=== PATIENT | female | born 1975 | race American Indian/Alaskan Native ===

== ENCOUNTER 2018-05-15 13:29 | Emergency (ER) | payer SELFPAY ==
--- NOTE | 2018-05-15 14:02 | Emergency Department Report ---
ED Neuro Deficit HPI - General Chief Complaint: Chest Pain Stated Complaint: HEADACHE/CHEST PAIN/CLOUDY VISION Time Seen by Provider: 05/15/18 13:49 Source: patient Mode of arrival: Ambulatory Limitations: Other - History of Present Illness Initial Comments: 42-year-old female presents to ED with complaint of headache and visual loss. The patient says she was last normal at 2 AM, woke up approximately 12 noon with a severe posterior headache and blurred vision, denies neck pain. Patient states blurred vision progressed to no vision at all. Patient says she only sees a "black cloud" with some light passing through. States she is unable to see images or colors. 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 Patient reports tobacco and ethanol use, denies drug use. -: hour(s) (2) Last Observed Normal: 02:00 Location: other (vision) Presenting Symptoms: Present: Sudden, Severe Headache, Blurred/Loss of Vision History of same: No Place: home Severity: severe Improves With: none Worsens With: none On Anticoagulants: Yes (eliquis) Context: sudden onset Associated Symptoms: chest pain Treatments Prior to Arrival: none - Related Data Allergies/Adverse Reactions: Allergies Allergy/AdvReac Type Severity Reaction Status Date / Time lisinopril Allergy Unknown Verified 05/15/18 13:51 Penicillins Allergy Unknown Verified 05/15/18 13:51 Sulfa (Sulfonamide Allergy Unknown Verified 05/15/18 13:51 Antibiotics) ED Review of Systems ROS: Stated complaint: HEADACHE/CHEST PAIN/CLOUDY VISION Other details as noted in HPI Comment: All other systems reviewed and negative Eyes: other (reports vision loss bilateral eyes) Respiratory: cough Cardiovascular: chest pain Musculoskeletal: other (denies neck pain) Neurological: headache. denies: weakness, numbness, paresthesias ED Past Medical Hx - Past Medical History Previous Medical History?: Yes Hx Hypertension: Yes Hx Pulmonary Embolism: Yes Hx Asthma: Yes Additional medical history: nodules on lungs - Social History Smoking Status: Current Every Day Smoker Substance Use Type: Alcohol, Marijuana ED Neuro Physical Exam - General Limitations: Other General appearance: alert, in no apparent distress, other (smells of ETOH) Suspected Stroke: Yes - Head Head exam: Present: atraumatic, normocephalic - Eye Eye exam: Present: normal appearance, PERRL, EOMI (unable to follow my finger, however, able to move eyes in the direction that I ask). Absent: conjunctival injection - ENT ENT exam: Present: mucous membranes moist - Neck Neck exam: Present: normal inspection - Respiratory Respiratory exam: Present: normal lung sounds bilaterally. Absent: respiratory distress - Cardiovascular Cardiovascular Exam: Present: regular rate, normal rhythm - GI/Abdominal GI/Abdominal exam: Present: soft. Absent: distended, tenderness - Extremities Exam Extremities exam: Present: normal inspection - Neurological Exam Neurological exam: Present: alert, oriented X3 - NIHSS Assessment Interval: Baseline 1a. Level of Consciousness: alert/keenly responsive 1b. LOC Questions: answers both correctly 1c. LOC Commands: performs tasks correctly 2. Best Gaze: normal 3. Visual: bilateral hemianopia 4. Facial Palsy: normal symmetrical movement 5b. Motor Arm Right: no drift 5a. Motor Arm Left: no drift 6a. Motor Leg Left: no drift 6b. Motor Leg Right: no drift 7. Limb Ataxia: absent 8. Sensory: normal 9. Best Language: no aphasia 10. Dysarthria: normal 11. Extinction/Inattention: no abnormality Total Score: 3 Stroke Severity: Minor Stroke - Skin Skin exam: Present: warm, dry, intact, normal color ED Course Vital Signs 05/15/18 05/15/18 05/15/18 13:48 14:11 14:15 Temperature 98.9 F Pulse Rate 94 H 85 109 H Respiratory 20 26 H 25 H Rate Blood Pressure 152/105 165/118 O2 Sat by Pulse 98 98 Oximetry 05/15/18 05/15/18 05/15/18 14:31 15:02 15:15 Temperature Pulse Rate 80 70 Respiratory 15 17 Rate Blood Pressure 165/118 165/118 163/106 O2 Sat by Pulse 98 100 98 Oximetry 05/15/18 05/15/18 05/15/18 15:30 15:45 16:00 Temperature Pulse Rate 101 H 72 78 Respiratory 21 13 13 Rate Blood Pressure 169/115 170/107 154/107 O2 Sat by Pulse 88 98 100 Oximetry 05/15/18 05/15/18 05/15/18 16:15 16:30 16:35 Temperature Pulse Rate 79 86 Respiratory 18 17 18 Rate Blood Pressure 154/90 155/97 O2 Sat by Pulse 97 94 98 Oximetry - Reevaluation(s) Reevaluation #1: 05/15/18 15:16 Passed by pt's room and she is laying on her side in position looking at her phone and talking to someone. I entered the room and saw that pt is Facetiming with her mother. I asked pt why she was on Face Time if she could not see anything. Pt states she still cannot see, but was able to see her mother's name which is red in color on her phone. Pt initially stated that she could not see colors or images. Awaiting CTA w/ venogram. Reevaluation #2: 05/15/18 15:42 Passed by pt's room and noticed pt signing paperwork for registration. I asked to see paperwork and pt did sign her name on the line. CTA and venogram normal. Neurologist recommends admit for MRI, no thrombolytics or heparin at this time. - Consultations Consultation #1: 05/15/18 14:19 Dr Smith, neurologist at bedside via robot. Will place order for CTA and venogram - Lab Data Result diagrams: 05/15/18 14:04 05/15/18 14:04 Lab Results 05/15/18 05/15/18 05/15/18 Range/Units 14:04 14:04 14:04 WBC 6.7 (4.5-11.0) K/mm3 RBC 4.97 (3.65-5.03) M/mm3 Hgb 13.1 (10.1-14.3) gm/dl Hct 40.4 (30.3-42.9) % MCV 81 (79-97) fl MCH 26 L (28-32) pg MCHC 33 (30-34) % RDW 16.5 H (13.2-15.2) % Plt Count 334 (140-440) K/mm3 Lymph % (Auto) 38.5 H (13.4-35.0) % [place] % (Auto) 11.4 H (0.0-7.3) % Eos % (Auto) 2.4 (0.0-4.3) % Baso % (Auto) 0.9 (0.0-1.8) % Lymph # 2.6 (1.2-5.4) K/mm3 [place] # 0.8 (0.0-0.8) K/mm3 Eos # 0.2 (0.0-0.4) K/mm3 Baso # 0.1 (0.0-0.1) K/mm3 Seg Neutrophils % 46.8 (40.0-70.0) % Seg Neutrophils # 3.1 (1.8-7.7) K/mm3 Sodium 144 (137-145) mmol/L Potassium 4.2 (3.6-5.0) mmol/L Chloride 108.5 H (98-107) mmol/L Carbon Dioxide 19 L (22-30) mmol/L Anion Gap 21 mmol/L BUN 7 (7-17) mg/dL Creatinine 0.7 (0.7-1.2) mg/dL Estimated GFR > 60 ml/min BUN/Creatinine Ratio 10 % Glucose 92 (65-100) mg/dL Calcium 8.0 L (8.4-10.2) mg/dL Total Creatine Kinase 119 (30-135) units/L CK-MB (CK-2) 1.4 (0.0-4.0) ng/mL CK-MB (CK-2) Rel Index 1.1 (0-4) Troponin T < 0.010 (0.00-0.029) ng/mL HCG, Quant (0-4) mIU/mL Plasma/Serum Alcohol (0-0.07) % 05/15/18 05/15/18 Range/Units 14:04 14:04 WBC (4.5-11.0) K/mm3 RBC (3.65-5.03) M/mm3 Hgb (10.1-14.3) gm/dl Hct (30.3-42.9) % MCV (79-97) fl MCH (28-32) pg MCHC (30-34) % RDW (13.2-15.2) % Plt Count (140-440) K/mm3 Lymph % (Auto) (13.4-35.0) % [place] % (Auto) (0.0-7.3) % Eos % (Auto) (0.0-4.3) % Baso % (Auto) (0.0-1.8) % Lymph # (1.2-5.4) K/mm3 [place] # (0.0-0.8) K/mm3 Eos # (0.0-0.4) K/mm3 Baso # (0.0-0.1) K/mm3 Seg Neutrophils % (40.0-70.0) % Seg Neutrophils # (1.8-7.7) K/mm3 Sodium (137-145) mmol/L Potassium (3.6-5.0) mmol/L Chloride (98-107) mmol/L Carbon Dioxide (22-30) mmol/L Anion Gap mmol/L BUN (7-17) mg/dL Creatinine (0.7-1.2) mg/dL Estimated GFR ml/min BUN/Creatinine Ratio % Glucose (65-100) mg/dL Calcium (8.4-10.2) mg/dL Total Creatine Kinase (30-135) units/L CK-MB (CK-2) (0.0-4.0) ng/mL CK-MB (CK-2) Rel Index (0-4) Troponin T (0.00-0.029) ng/mL HCG, Quant < 2 (0-4) mIU/mL Plasma/Serum Alcohol 0.08 H (0-0.07) % - EKG Data -: EKG Interpreted by Me EKG shows normal: sinus rhythm, axis, intervals, QRS complexes, ST-T waves Rate: tachycardia Interpretation: no acute changes - Radiology Data Radiology results: report reviewed, image reviewed - Medical Decision Making 42-year-old female reports vision loss earlier today. However, patient has been observed face timing and also signing paperwork, even though she says she is still unable to see. Imaging has been negative, including head CT, CTA head and neck, CT venogram of brain. Alcohol level is slightly elevated 0.08. 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 Spoke with hospitalist, Dr. Rogers, regarding admission. - Differential Diagnosis CVA, conversion disorder, ETOH intoxication Critical Care Time: Yes Critical care time in (mins) excluding proc time.: 30 Critical care attestation.: If time is entered above; I have spent that time in minutes in the direct care of this critically ill patient, excluding procedure time. Critical Care Time: 30 minutes ED Disposition Clinical Impression: Vision disturbance, Alcohol intoxication Disposition: 09 OP ADMIT IP TO THIS HOSP Is pt being admited?: Yes Condition: Stable Referrals: NEDA ARRIOLA MD [Staff Physician] - 3-5 Days Time of Disposition: 16:31
[2018-05-15 14:08] LABS: Basophils # (Auto) 0.1 K/mm3 (0.0-0.1); Basophils % (Auto) 0.9 % (0.0-1.8); Eosinophils # (Auto) 0.2 K/mm3 (0.0-0.4); Eosinophils % (Auto) 2.4 % (0.0-4.3); Hematocrit 40.4 % (30.3-42.9); Hemoglobin 13.1 gm/dl (10.1-14.3); Lymphocytes # (Auto) 2.6 K/mm3 (1.2-5.4); Lymphocytes % (Auto) 38.5 % (13.4-35.0); Mean Corpuscular HGB Conc 33 % (30-34); Mean Corpuscular Volume 81 fl (79-97); Monocytes # (Auto) 0.8 K/mm3 (0.0-0.8); Monocytes % (Auto) 11.4 % (0.0-7.3); Platelet Count 334 K/mm3 (140-440); Red Blood Count 4.97 M/mm3 (3.65-5.03); Red Cell Distribution Width 16.5 % (13.2-15.2)
[2018-05-15 14:19] LABS: BUN/Creatinine Ratio 10; Blood Urea Nitrogen 7 mg/dL (7-17); Hemolysis Index 5
--- NOTE | 2018-05-15 14:23 | Cat Scan Report ---
CT HEAD WITHOUT CONTRAST: HISTORY: Headache, vision loss, stroke. TECHNIQUE: Sequential 2.5mm CT images. COMPARISON: none. FINDINGS: Cerebral Parenchyma: Within normal limits. Cerebellum: Within normal limits. Brainstem: Within normal limits. Ventricles: Normal. Sella: Normal. Extra-axial spaces: Normal. Basal Cisterns: Normal. Intracranial Hemorrhage: None. Midline Shift: None. Calvarium: Normal. Sinuses: Normal. Mastoid Air Cells: Normal. Visualized Orbits: Normal. IMPRESSION: Cranial CT scan within normal limits. These findings were discussed with Dr. Rogel in the emergency department at 1418 hrs.
[2018-05-15 14:26] LABS: Creatine Kinase MB 1.4 ng/mL (0.0-4.0)
[2018-05-15] MEDS ORDERED: ZOFRAN IV ONE (15:00)
--- NOTE | 2018-05-15 15:27 | Cat Scan Report ---
CTA NECK: HISTORY: Headache, vision loss, stroke. TECHNIQUE: Helical CT following IV contrast. Sagittal and coronal reformatted images. 3D volume rendering technique. Stenosis was calculated using NASCET criteria. FINDINGS: The visualized aortic arch, innominate artery and proximal bilateral subclavian arteries are widely patent with less than 20% stenosis. Within the right carotid system: Less than 20% stenosis. Within the left carotid system: Less than 20% stenosis. The cervical vertebral arteries are patent with less than 20% stenosis. IMPRESSION: Unremarkable CTA of the neck.
--- NOTE | 2018-05-15 15:31 | Cat Scan Report ---
CTA HEAD: HISTORY: Headache, vision loss, stroke. TECHNIQUE: Helical CT images after IV contrast with 0.625mm reformations. Sagittal and coronal reformats. Rotational MIP images. 3D volume rendering technique. FINDINGS: The arterial structures of the anterior and posterior circulations are patent throughout. No evidence for stenosis, occlusion or aneurysm. CTV images were also obtained. The dural venous sinuses and deep internal cerebral veins are patent. No venous thrombosis is detected. IMPRESSION: Unremarkable CTA head. Unremarkable CTV head.
--- NOTE | 2018-05-15 16:49 | Event Note ---
Date: 05/15/18 C/o Blindness Patient facetiming when i eneterd the room Power 5/5 all 4 extemities Normal Neuro exam Etoh .08 Dx Etoh intoxication No TIA No CVA Discharge home )
--- NOTE | 2018-05-15 16:53 | Emergency Department Report ---
ED Neuro Deficit HPI - General Chief Complaint: Chest Pain Stated Complaint: HEADACHE/CHEST PAIN/CLOUDY VISION Time Seen by Provider: 05/15/18 13:49 Source: patient Mode of arrival: Ambulatory Limitations: No Limitations, Other - History of Present Illness Initial Comments: 42 yo female with history of prior DVT, PE supposed to be taking eliquis but reports has not been taking it for a few weeks due to it giving her heavy menstrual periods reports she went to bed at 0200 hrs and woke up around 1230 and she couldnt see- she is describing a fog across her vision in both eyes and cannot count fingers or see faces. -: During the night Time: 14:11 Last Observed Normal: 02:00 Location: other (vision blaterally, sensory on right side noted during exam, severe headache) Presenting Symptoms: Present: Sudden, Severe Headache History of same: No Place: home Severity: severe Improves With: none Worsens With: none On Anticoagulants: No (eliquis is prescribed but not taking it at home) Context: other (unknown, sleeping) Treatments Prior to Arrival: none - Related Data Home Medications: Previous Rx's Medication Instructions Recorded Last Taken Type Aspirin EC [Aspirin Enteric Coated 81 mg PO QDAY #100 tablet. 05/15/18 Unknown Rx TAB] Allergies/Adverse Reactions: Allergies Allergy/AdvReac Type Severity Reaction Status Date / Time lisinopril Allergy Unknown Verified 05/15/18 13:51 Penicillins Allergy Unknown Verified 05/15/18 13:51 Sulfa (Sulfonamide Allergy Unknown Verified 05/15/18 13:51 Antibiotics) ED Review of Systems ROS: Stated complaint: HEADACHE/CHEST PAIN/CLOUDY VISION Other details as noted in HPI Eyes: other (reports vision loss bilateral eyes) Respiratory: cough Cardiovascular: chest pain Musculoskeletal: other (denies neck pain) Neurological: headache. denies: weakness, numbness, paresthesias ED Past Medical Hx - Past Medical History Previous Medical History?: Yes Hx Hypertension: Yes Hx Pulmonary Embolism: Yes Hx Asthma: Yes Additional medical history: nodules on lungs - Social History Smoking Status: Current Every Day Smoker Substance Use Type: Alcohol, Marijuana - Medications Home Medications: Home Medications Medication Instructions Recorded Confirmed Last Taken Type Aspirin EC [Aspirin Enteric Coated 81 mg PO QDAY #100 tablet. 05/15/18 Unknown Rx TAB] ED Neuro Physical Exam - General Limitations: Other General appearance: alert, in no apparent distress, other (smells of ETOH per ED doctor; screaming and grabbing head, turning from left to right w/o any weakness noted, curls up in position) Suspected Stroke: Yes (posterior) - NIHSS Assessment Interval: Baseline 1a. Level of Consciousness: alert/keenly responsive 1b. LOC Questions: answers both correctly 1c. LOC Commands: performs tasks correctly 2. Best Gaze: normal 3. Visual: bilateral hemianopia (cannot finger count but can see motion) 4. Facial Palsy: normal symmetrical movement 5b. Motor Arm Right: no drift 5a. Motor Arm Left: no drift 6a. Motor Leg Left: no drift 6b. Motor Leg Right: no drift 7. Limb Ataxia: absent 8. Sensory: mild/moderate sensory loss (Right face/arm/leg) 9. Best Language: no aphasia 10. Dysarthria: normal 11. Extinction/Inattention: no abnormality Total Score: 4 Stroke Severity: Minor Stroke - Psychiatric Psychiatric exam: Present: anxious, manic (near manic, screaming at times) ED Course Vital Signs 05/15/18 05/15/18 05/15/18 13:48 14:11 14:15 Temperature 98.9 F Pulse Rate 94 H 85 109 H Respiratory 20 26 H 25 H Rate Blood Pressure 152/105 165/118 O2 Sat by Pulse 98 98 Oximetry 05/15/18 05/15/18 05/15/18 14:31 15:02 15:15 Temperature Pulse Rate 80 70 Respiratory 15 17 Rate Blood Pressure 165/118 165/118 163/106 O2 Sat by Pulse 98 100 98 Oximetry 05/15/18 05/15/18 05/15/18 15:30 15:45 16:00 Temperature Pulse Rate 101 H 72 78 Respiratory 21 13 13 Rate Blood Pressure 169/115 170/107 154/107 O2 Sat by Pulse 88 98 100 Oximetry 05/15/18 05/15/18 05/15/18 16:15 16:30 16:35 Temperature Pulse Rate 79 86 Respiratory 18 17 18 Rate Blood Pressure 154/90 155/97 O2 Sat by Pulse 97 94 98 Oximetry 05/15/18 05/15/18 05/15/18 16:45 17:00 17:15 Temperature Pulse Rate 77 87 71 Respiratory 15 22 22 Rate Blood Pressure 159/100 159/109 167/109 O2 Sat by Pulse 96 96 86 Oximetry - Lab Data Result diagrams: 05/15/18 14:04 05/15/18 14:04 Lab Results 05/15/18 05/15/18 05/15/18 Range/Units 14:04 14:04 14:04 WBC 6.7 (4.5-11.0) K/mm3 RBC 4.97 (3.65-5.03) M/mm3 Hgb 13.1 (10.1-14.3) gm/dl Hct 40.4 (30.3-42.9) % MCV 81 (79-97) fl MCH 26 L (28-32) pg MCHC 33 (30-34) % RDW 16.5 H (13.2-15.2) % Plt Count 334 (140-440) K/mm3 Lymph % (Auto) 38.5 H (13.4-35.0) % [place] % (Auto) 11.4 H (0.0-7.3) % Eos % (Auto) 2.4 (0.0-4.3) % Baso % (Auto) 0.9 (0.0-1.8) % Lymph # 2.6 (1.2-5.4) K/mm3 [place] # 0.8 (0.0-0.8) K/mm3 Eos # 0.2 (0.0-0.4) K/mm3 Baso # 0.1 (0.0-0.1) K/mm3 Seg Neutrophils % 46.8 (40.0-70.0) % Seg Neutrophils # 3.1 (1.8-7.7) K/mm3 PT (12.2-14.9) Sec. INR (0.87-1.13) APTT (24.2-36.6) Sec. Thrombin Time (15.1-19.6) Sec. Sodium 144 (137-145) mmol/L Potassium 4.2 (3.6-5.0) mmol/L Chloride 108.5 H (98-107) mmol/L Carbon Dioxide 19 L (22-30) mmol/L Anion Gap 21 mmol/L BUN 7 (7-17) mg/dL Creatinine 0.7 (0.7-1.2) mg/dL Estimated GFR > 60 ml/min BUN/Creatinine Ratio 10 % Glucose 92 (65-100) mg/dL Calcium 8.0 L (8.4-10.2) mg/dL Total Creatine Kinase 119 (30-135) units/L CK-MB (CK-2) 1.4 (0.0-4.0) ng/mL CK-MB (CK-2) Rel Index 1.1 (0-4) Troponin T < 0.010 (0.00-0.029) ng/mL HCG, Quant (0-4) mIU/mL Plasma/Serum Alcohol (0-0.07) % 05/15/18 05/15/18 05/15/18 Range/Units 14:04 14:04 15:53 WBC (4.5-11.0) K/mm3 RBC (3.65-5.03) M/mm3 Hgb (10.1-14.3) gm/dl Hct (30.3-42.9) % MCV (79-97) fl MCH (28-32) pg MCHC (30-34) % RDW (13.2-15.2) % Plt Count (140-440) K/mm3 Lymph % (Auto) (13.4-35.0) % [place] % (Auto) (0.0-7.3) % Eos % (Auto) (0.0-4.3) % Baso % (Auto) (0.0-1.8) % Lymph # (1.2-5.4) K/mm3 [place] # (0.0-0.8) K/mm3 Eos # (0.0-0.4) K/mm3 Baso # (0.0-0.1) K/mm3 Seg Neutrophils % (40.0-70.0) % Seg Neutrophils # (1.8-7.7) K/mm3 PT 13.0 (12.2-14.9) Sec. INR 0.93 (0.87-1.13) APTT 26.6 (24.2-36.6) Sec. Thrombin Time 16.7 (15.1-19.6) Sec. Sodium (137-145) mmol/L Potassium (3.6-5.0) mmol/L Chloride (98-107) mmol/L Carbon Dioxide (22-30) mmol/L Anion Gap mmol/L BUN (7-17) mg/dL Creatinine (0.7-1.2) mg/dL Estimated GFR ml/min BUN/Creatinine Ratio % Glucose (65-100) mg/dL Calcium (8.4-10.2) mg/dL Total Creatine Kinase (30-135) units/L CK-MB (CK-2) (0.0-4.0) ng/mL CK-MB (CK-2) Rel Index (0-4) Troponin T (0.00-0.029) ng/mL HCG, Quant < 2 (0-4) mIU/mL Plasma/Serum Alcohol 0.08 H (0-0.07) % - Medical Decision Making IMPRESSION: 1. R/O CSVT giiven h/o headache and PE/DVT noncompliant on AC 2. R/O stroke- vs PRES syndrome- would be localized to bilateral occipital regions and left parietal region, could be induced by drug use vs HTN 3. alcohol intoxication- patient's BAL came back elevated Recs: 1. CTA/V H/N- this was completed and negative for CSVT 2. recommend MRI brain to r/o stroke, neurology inpatient consult Laila Smith MD d/w ED doc Medical Decision Making: - Extensive number of diagnosis or management options are considered above. - Extensive amount of complex data reviewed. - High risk of complication and/or morbidity or mortality are associated with differential diagnostic considerations above. - There may be uncertain outcome and increased probability of prolonged functional impairment or high probability of severe prolonged functional impairment associated with some of these differential diagnosis. Medical Data Reviewed: 1.Data reviewed include clinical labs, radiology, Medical Tests; 2.Tests results discussed w/performing or interpreting physician; 3.Obtaining/reviewing old medical records; 4.Obtaining case history from another source; 5.Independent review of image, tracing or specimen. Patient was informed the Neurology Consult would happen via telehealth (remote video) and consented to receiving care in this manner. Critical care attestation.: If time is entered above; I have spent that time in minutes in the direct care of this critically ill patient, excluding procedure time. ED Disposition Clinical Impression: Vision disturbance, Alcohol intoxication Disposition: DC-01 TO HOME OR SELFCARE Is pt being admited?: Yes Condition: Stable Instructions: Alcohol Intoxication (ED), Abuse of Alcohol (ED) Prescriptions: Aspirin EC [Aspirin Enteric Coated TAB] 81 mg PO QDAY #100 tablet. Referrals: NEDA ARRIOLA MD [Staff Physician] - 3-5 Days
[2018-05-15 16:58] LABS: INR 0.93 (0.87-1.13)
[2018-05-15 16:59] LABS: Partial Thromboplastin Time 26.6 Sec. (24.2-36.6); Thrombin Time 16.7 Sec. (15.1-19.6)
[2018-05-15 17:18] VITALS: BP 167/109
[2018-05-15] MEDS ORDERED: ZOFRAN ONE (18:45)
== END 2018-05-15 17:39 | disposition home or self-care (01) ==
LOC: ED 13:29
DX: H53.9 Unspecified visual disturbance (principal); F10.120 Alcohol abuse with intoxication, uncomplicated; I10 Essential (primary) hypertension; J45.909 Unspecified asthma, uncomplicated; F17.200 Nicotine dependence, unspecified, uncomplicated; Z86.718 Personal history of other venous thrombosis and embolism; Z86.711 Personal history of pulmonary embolism; Z88.0 Allergy status to penicillin; Z88.2 Allergy status to sulfonamides
CPT/HCPCS: 36415; 70450; 70496; 70498; 80048; 82550; 82553; 82962; 84484; 84702; 85025; 85610; 85670; 85730; 93005; 93010; 96374; 99285; G0480; J2405; Q9967; 80320

== ENCOUNTER 2018-10-31 11:40 | Emergency (ER) | payer OTHER ==
--- NOTE | 2018-10-31 13:02 | Emergency Department Report ---
HPI - General Chief Complaint: Extremity Problem,Nontraumatic Time Seen by Provider: 10/31/18 12:15 - HPI HPI: 43-year-old female presents to the emergency department with complaint of some right hand pain, mostly around the thumb and thenar eminence, that radiates around towards the forearm. This is been going on for the past week. However this morning the patient noticed some swelling to the hand. Patient says that she is concerned that she could have formed a blood clot as she has a history of both DVT and PE and says that "this pain feels similar." The patient admits to noncompliance with her Eliquis for the past 2 months secondary to insurance and financial issues. She has not taken anything for her symptoms prior to presentation. She is right-hand dominant. Her primary care physician is a Dr. Terrance Mariee. ED Past Medical Hx - Past Medical History Hx Hypertension: Yes Hx Pulmonary Embolism: Yes Hx Asthma: Yes Additional medical history: nodules on lungs - Surgical History Past Surgical History?: No - Social History Smoking Status: Current Every Day Smoker Substance Use Type: Alcohol, Marijuana - Medications Home Medications: Home Medications Medication Instructions Recorded Confirmed Last Taken Type Aspirin EC [Halfprin EC] 81 mg PO QDAY #100 tablet. 05/15/18 Unknown Rx Ibuprofen [Motrin 600 MG tab] 600 mg PO Q8H PRN #20 tablet 10/31/18 Unknown Rx amLODIPine [Norvasc] 5 mg PO DAILY #30 tab 10/31/18 Unknown Rx ED Review of Systems ROS: Stated complaint: RT HAND PAIN Other details as noted in HPI Comment: All other systems reviewed and negative Constitutional: denies: chills, fever Respiratory: denies: cough, shortness of breath Cardiovascular: denies: chest pain, palpitations Musculoskeletal: joint swelling, arthralgia, myalgia Skin: denies: rash, lesions Neurological: denies: numbness, paresthesias Physical Exam - Physical Exam Vital Signs: Vital Signs 10/31/18 11:44 Temperature 98.1 F Pulse Rate 82 Respiratory 20 Rate Blood Pressure 185/118 O2 Sat by Pulse 97 Oximetry Physical Exam: GENERAL: The patient is well-developed well-nourished. HENT: Normocephalic. Atraumatic. Patient has moist mucous membranes. EYES: Extraocular motions are intact. NECK: Supple. Trachea is midline. CHEST/LUNGS: Clear to auscultation. There is no respiratory distress noted. HEART/CARDIOVASCULAR: Regular. There is no tachycardia. There is no murmur. ABDOMEN: Abdomen is soft, nontender. Patient has normal bowel sounds. There is no abdominal distention. SKIN: Mild swelling around the right thumb and thenar eminence. No skin color change, erythema, rash or lesions. NEURO: The patient is awake, alert, and oriented. The patient is cooperative. The patient has no focal neurologic deficits. Normal speech. MUSCULOSKELETAL: There is some tenderness to palpation around the base of the right thumb. Capillary refill less than 2 seconds and radial pulse +2 over 4 defected right thumb and wrist. There is no limitation range of motion. ED Course Vital Signs 10/31/18 11:44 Temperature 98.1 F Pulse Rate 82 Respiratory 20 Rate Blood Pressure 185/118 O2 Sat by Pulse 97 Oximetry ED Medical Decision Making - Lab Data Result diagrams: 10/31/18 13:03 10/31/18 13:03 - Radiology Data Radiology results: report reviewed Right upper extremity venous Doppler ultrasound was negative for DVT. - Medical Decision Making Patient presents with a few days of pain and swelling around the right thumb with some radiation down towards her forearm. It seems like a low suspicion for right upper extremity DVT but she does have a history of DVT, PE and medication noncompliance with her anticoagulation. For this recent right upper Jevity ve nous Doppler ultrasound was completed that it was in fact negative for a DVT. Labs were unremarkable including no leukocytosis, normal uric acid level. Her vital signs are stable throughout her ED course. She did present with some hypertension but came down without any antihypertensive medications given. We discussed dietary and/or lifestyle changes to make including decreased sodium and caffeine intake. She'll be started on amlodipine. She was given referrals for primary care and orthopedics. She will return to the ER with any worsening of her symptoms or any acute distress. - Differential Diagnosis osteoarthritis, DVT, gout, cellulitis Critical Care Time: No Critical care attestation.: If time is entered above; I have spent that time in minutes in the direct care of this critically ill patient, excluding procedure time. ED Disposition Clinical Impression: Pain of right thumb, Right hand pain, Noncompliance with medication regimen Hypertension Qualifiers: Hypertension type: essential hypertension Qualified Code(s): I10 - Essential (primary) hypertension Disposition: DC-01 TO HOME OR SELFCARE Is pt being admited?: No Condition: Stable Instructions: Hypertension (ED), Arthralgia (ED) Additional Instructions: Please follow-up with your primary care physician in the next few days. Return to the emergency Department with any worsening of your symptoms or any acute distress. I am getting a referral for a local orthopedist, Dr. Medina, to follow-up regarding your right thumb, hand and wrist pain. I'm starting youon a blood pressure medication called Norvasc/amlodipine. This medication is taken once per day, usually in the morning. Try and stay away from foods that are high in salt and caffeinated products. Keep a blood pressure log. Prescriptions: Ibuprofen [Motrin 600 MG tab] 600 mg PO Q8H PRN #20 tablet PRN Reason: Pain amLODIPine [Norvasc] 5 mg PO DAILY #30 tab Referrals: STEPHAN MEDINA MD [Staff Physician] - 2-3 Days [facility] [Outside] - 2-3 Days Time of Disposition: 14:50
[2018-10-31 13:27] LABS: Basophils % (Auto) 0.7 % (0.0-1.8); Eosinophils # (Auto) 0.1 K/mm3 (0.0-0.4); Eosinophils % (Auto) 1.1 % (0.0-4.3); Hemoglobin 11.6 gm/dl (10.1-14.3); Mean Corpuscular HGB Conc 33 % (30-34); Mean Corpuscular Volume 78 fl (79-97); Monocytes # (Auto) 0.5 K/mm3 (0.0-0.8); Monocytes % (Auto) 7.2 % (0.0-7.3); Platelet Count 334 K/mm3 (140-440); Red Blood Count 4.48 M/mm3 (3.65-5.03); Red Cell Distribution Width 16.4 % (13.2-15.2)
[2018-10-31 13:51] LABS: BUN/Creatinine Ratio 11; Blood Urea Nitrogen 8 mg/dL (7-17); Calcium 8.3 mg/dL (8.4-10.2); Hemolysis Index 3; Uric Acid 3.7 mg/dL (3.5-7.6)
--- NOTE | 2018-10-31 13:58 | Vascular Lab Report ---
RIGHT UPPER EXTREMITY VENOUS DOPPLER ULTRASOUND HISTORY: Right arm pain and swelling for one week COMPARISON: None. TECHNIQUE: Grayscale, color and spectral Doppler imaging of the venous system of the right upper extr emity was performed. FINDINGS: Internal Jugular Vein: Normal grayscale appearance and flow. Subclavian Vein: Normal grayscale appearance and flow. Axillary Vein: Normal venous flow, compressibility and augmentation. Brachial vein: Normal venous flow, compressibility and augmentation. Basilic vein: Normal venous flow, compressibility and augmentation. Cephalic vein: Normal venous flow, compressibility and augmentation. Radial vein: Normal venous flow, compressibility and augmentation. Ulnar vein: Normal venous flow, compressibility and augmentation. Additional Findings: None. IMPRESSION: 1. No sonographic evidence of deep venous thrombosis in the right upper extremity. Signer Name: Jhony Morfin Jr, MD Signed: 10/31/2018 1:54 PM Workstation Name: [id number]
[2018-10-31 15:49] VITALS: BP 154/110
== END 2018-10-31 15:07 | disposition home or self-care (01) ==
LOC: ED 11:40
DX: M79.641 Pain in right hand (principal); M79.644 Pain in right finger(s); I10 Essential (primary) hypertension; J45.909 Unspecified asthma, uncomplicated; F17.200 Nicotine dependence, unspecified, uncomplicated; F12.10 Cannabis abuse, uncomplicated; Z91.14 Patient's other noncompliance with medication regimen; Z88.8 Allergy status to other drugs, medicaments and biological substances; Z88.0 Allergy status to penicillin; Z88.2 Allergy status to sulfonamides
CPT/HCPCS: 36415; 80048; 84550; 85025

== ENCOUNTER 2020-02-23 07:22 | Emergency (ER) | payer MEDICAID ==
[2020-02-23] MEDS ORDERED: oxyCODONE /ACETAMINOPHEN 5-325MG TAB PO ONE (13:41)
--- NOTE | 2020-02-23 13:47 | Emergency Department Report ---
ED General Adult HPI - General Chief complaint: Neck Pain/Injury Stated complaint: LT ARM TINGLING Time Seen by Provider: 02/23/20 13:39 Source: patient Mode of arrival: Wheelchair Limitations: No Limitations - History of Present Illness Initial comments: 44-year-old female presents to the emergency room complaining of left shoulder pain off and on x1 month her left shoulder pain worsens with movement. she denies any known injuries or falls. she states this morning when she woke up the pain was worse pain is now a 9/10 . denies chest pain she denies denies shortness of breath she denies cough fever chills no URI symptoms. Patient has a past medical history of DVT currently on Eliquis history of high blood pressure and eosinophilia. -: month(s) (1) Location: upper extremity (Left shoulder) Radiation: other (Left clavicle to left shoulder) Severity scale (0 -10): 9 Quality: aching, sharp Consistency: constant Improves with: none Worsens with: movement Associated Symptoms: denies other symptoms. denies: confusion, chest pain, cough, diaphoresis, fever/chills, headaches, loss of appetite, malaise, nausea/vomiting, rash, seizure, shortness of breath, syncope, weakness Treatments Prior to Arrival: none - Related Data Previous Rx's Medication Instructions Recorded Last Taken Type Aspirin EC [Halfprin EC] 81 mg PO QDAY #100 tablet. 05/15/18 Unknown Rx Ibuprofen [Motrin 600 MG tab] 600 mg PO Q8H PRN #20 tablet 10/31/18 Unknown Rx amLODIPine [Norvasc] 5 mg PO DAILY #30 tab 10/31/18 Unknown Rx methOCARBAMOL [Robaxin TAB] 750 mg PO BID #20 tab 02/23/20 Unknown Rx traMADoL [Ultram 50 MG tab] 50 mg PO Q6HR PRN #15 tablet 02/23/20 Unknown Rx Allergies Allergy/AdvReac Type Severity Reaction Status Date / Time lisinopril Allergy Unknown Verified 05/15/18 13:51 Penicillins Allergy Unknown Verified 05/15/18 13:51 Sulfa (Sulfonamide Allergy Unknown Verified 05/15/18 13:51 Antibiotics) ED Review of Systems ROS: Stated complaint: LT ARM TINGLING Other details as noted in HPI Comment: All other systems reviewed and negative Constitutional: no symptoms reported. denies: chills, fever Respiratory: no symptoms reported Cardiovascular: denies: chest pain, palpitations, dyspnea on exertion, orthopnea, edema, syncope, paroxysmal nocturnal dyspnea Endocrine: no symptoms reported Gastrointestinal: denies: abdominal pain, nausea, vomiting Genitourinary: denies: dysuria, frequency, hematuria Musculoskeletal: denies: joint swelling Skin: as per HPI. denies: rash, lesions Neurological: denies: headache, weakness, numbness, paresthesias, confusion, abnormal gait, vertigo ED Past Medical Hx - Past Medical History Previous Medical History?: Yes Hx Hypertension: Yes Hx Pulmonary Embolism: Yes Hx Asthma: Yes Additional medical history: nodules on lungs - Social History Smoking Status: Current Every Day Smoker Substance Use Type: Alcohol, Marijuana - Medications Home Medications: Home Medications Medication Instructions Recorded Confirmed Last Taken Type Aspirin EC [Halfprin EC] 81 mg PO QDAY #100 tablet. 05/15/18 Unknown Rx Ibuprofen [Motrin 600 MG tab] 600 mg PO Q8H PRN #20 tablet 10/31/18 Unknown Rx amLODIPine [Norvasc] 5 mg PO DAILY #30 tab 10/31/18 Unknown Rx methOCARBAMOL [Robaxin TAB] 750 mg PO BID #20 tab 02/23/20 Unknown Rx traMADoL [Ultram 50 MG tab] 50 mg PO Q6HR PRN #15 tablet 02/23/20 Unknown Rx ED Physical Exam - General Limitations: No Limitations General appearance: alert, in no apparent distress - Head Head exam: Present: atraumatic - Eye Eye exam: Present: normal appearance - ENT ENT exam: Present: normal exam, mucous membranes moist - Neck Neck exam: Present: normal inspection, other (No vertebral point tenderness) - Respiratory Respiratory exam: Present: normal lung sounds bilaterally - Cardiovascular Cardiovascular Exam: Present: regular rate, normal heart sounds - Extremities Exam Extremities exam: Present: normal inspection, tenderness, normal capillary refill, other (Left shoulder tenderness over the humeral head and across her left clavicle no swelling no deformity noted). Absent: joint swelling - Back Exam Back exam: Present: normal inspection. Absent: vertebral tenderness - Neurological Exam Neurological exam: Present: alert, oriented X3 - Psychiatric Psychiatric exam: Present: normal affect - Skin Skin exam: Present: warm, dry, intact ED Course Vital Signs 02/23/20 02/23/20 02/23/20 08:08 14:54 15:49 Temperature 98.0 F Pulse Rate 95 H 84 Respiratory 18 16 Rate Blood Pressure 222/111 Blood Pressure 181/111 [Right] O2 Sat by Pulse 97 Oximetry 02/23/20 02/23/20 02/23/20 15:50 17:55 18:12 Temperature Pulse Rate 84 88 Respiratory 16 16 18 Rate Blood Pressure Blood Pressure 222/111 188/114 [Right] O2 Sat by Pulse 96 98 Oximetry - Reevaluation(s) Reevaluation #1: 02/23/20 15:35 Patient prepared for discharge blood pressure is now 203/122 patient states her left shoulder pain is a 7/10 and she is now complaining that she believes she may have a PE. Patient is currently on Eliquis because of her history of multiple DVTs. The plan is to treat her blood pressure with hydralazine p.o. EKG is ordered CT angiogram to rule out PE ordered and basic labs Reevaluation #2: 02/23/20 18:36 Patient now states she feels much better she has a appointment with Dr. Mariee on Tuesday in her office she has missed a dose of her blood pressure medicine I instructed her to take it 1 upon arrival at home and her pain has diminished significantly ED Medical Decision Making - Lab Data Result diagrams: 02/23/20 16:11 02/23/20 16:11 - Radiology Data Radiology results: report reviewed CT angio of chest FINDINGS: PULMONARY ARTERIES: No pulmonary emboli. THORACIC AORTA: No significant abnormality. HEART: No significant abnormality. CORONARY ARTERIES: No significant calcification. PLEURA: No pleural effusion. No pneumothorax. LYMPH NODES: No significant adenopathy. LUNGS: Faint patchy airspace changes left upper lobe ADDITIONAL FINDINGS: None. UPPER ABDOMEN: No acute findings. SKELETAL STRUCTURES: No significant osseous abnormality. IMPRESSION: 1. No CT evidence for pulmonary embolism. 2. Faint parenchymal changes left upper lobe inflammatory process is a concern Xray of left shoulder - Medical Decision Making This is a 44-year-old female with complaint of left shoulder pain for few months for 1 month off and on. She has had no report of trauma or injury. She does have a past medical history of DVT which she is on Eliquis she has hypertension and eosinophilia. During evaluation patient was found to be severely hypertensive and EKG was done shows that she is sinus bradycardia with no STEMI. X-ray of patient's left shoulder showed no fracture or dislocation. She denied chest pain the patient is concerned about pulmonary embolism due to her history of DVTs and she is currently on Eliquis. CTA done and there is no evidence of pulmonary embolism. CTA does show Faint parenchymal changes left upper lobe inflammatory. No acute findings inpatient lab. I discussed all findings with patient she states that she is currently being seen by a physician in [place] who is treating her carpal tunnel . I encourage patient to follow-up with her primary care doctor a copy of her chest x-ray result is given so she can get further evaluation of the faint parenchymal changes in her the left upper lobe. Patient also instructed to return home and continue with her blood pressure medication as ordered by her PCP - Differential Diagnosis Left shoulder strain pulmonary embolus hypertensive crisis Critical Care Time: No Critical care attestation.: If time is entered above; I have spent that time in minutes in the direct care of this critically ill patient, excluding procedure time. ED Disposition Clinical Impression: Left shoulder pain Qualifiers: Chronicity: chronic Qualified Code(s): M25.512 - Pain in left shoulder Left shoulder strain Qualifiers: Encounter type: initial encounter Qualified Code(s): S46.912A - Strain of unspecified muscle, fascia and tendon at shoulder and upper arm level, left arm, initial encounter Hypertension Qualifiers: Hypertension type: unspecified Qualified Code(s): I10 - Essential (primary) hypertension Disposition: DC- TO HOME OR SELFCARE Is pt being admited?: No Does the pt Need Aspirin: No Condition: Stable Instructions: Shoulder Pain, Musculoskeletal Pain, Muscle Strain, Joint Pain, Hypertension (ED) Additional Instructions: The x-ray of your lumbar left shoulder has no abnormal findings. Please follow- up with your primary care doctor in 3 to 5 days. For further evaluation. Take tramadol as prescribed for pain. You may consider warm compresses on and off for 15 minutes at least 3 times a day. You may consider following up with the doctor who is treating your carpal tunnel the. The EKG done today shows no acute findings the CAT scan of your chest is negative for any pulmonary embolism you do have a area of the left upper lobe that shows faint branchial changes and this will need further evaluation. I have given you a copy of the results please refer to the results and follow-up with your primary care doctor Prescriptions: methOCARBAMOL [Robaxin TAB] 750 mg PO BID #20 tab traMADoL [Ultram 50 MG tab] 50 mg PO Q6HR PRN #15 tablet PRN Reason: Pain Referrals: PRIMARY CARE, [Primary Care Provider] - 3-5 Days NEDA ARRIOLA MD [Staff Physician] - 3-5 Days Time of Disposition: 18:27
--- NOTE | 2020-02-23 14:32 | XRay Report ---
LEFT SHOULDER 3 VIEWS INDICATION / CLINICAL INFORMATION: Left shoulder pain. COMPARISON: None available. FINDINGS: BONES / JOINT(S): The joint spaces are well-maintained. There is no evidence of fracture, subluxation or destructive lesion. SOFT TISSUES: No significant abnormality. ADDITIONAL FINDINGS: The visualized left lung is clear. IMPRESSION: No acute abnormality. Signer Name: Contreras Saleem MD Signed: 02/23/2020 2:27 PM Workstation Name: [id number]
[2020-02-23] MEDS ORDERED: hydrALAZINE 25 MG TAB PO ONE (15:35)
[2020-02-23 16:49] LABS: Basophils # (Auto) 0.1 K/mm3 (0.0-0.1); Basophils % (Auto) 0.7 % (0.0-1.8); Eosinophils # (Auto) 0.1 K/mm3 (0.0-0.4); Eosinophils % (Auto) 0.7 % (0.0-4.3); Hematocrit 34.8 % (30.3-42.9); Hemoglobin 11.4 gm/dl (10.1-14.3); Lymphocytes % (Auto) 28.6 % (13.4-35.0); Mean Corpuscular HGB Conc 33 % (30-34); Mean Corpuscular Volume 77 fl (79-97); Monocytes % (Auto) 9.4 % (0.0-7.3); Platelet Count 341 K/mm3 (140-440); Red Cell Distribution Width 16.8 % (13.2-15.2)
[2020-02-23 17:08] LABS: Alanine Aminotransferase 16 units/L (7-56); Albumin 4.4 g/dL (3.9-5); BUN/Creatinine Ratio 11; Blood Urea Nitrogen 9 mg/dL (7-17); Calcium 8.8 mg/dL (8.4-10.2); Hemolysis Index 2
[2020-02-23] MEDS ORDERED: ONDANSETRON 4 MG ODT TAB PO ONE (17:18)
--- NOTE | 2020-02-23 18:05 | Cat Scan Report ---
CTA CHEST WITH IV CONTRAST INDICATION / CLINICAL INFORMATION: r/o PE, HX OF DVT. TECHNIQUE: Axial CT images were obtained through the chest after injection of 100 cc Omnipaque 350 milligrams pe rcent IV contrast. 3 plane MIP and/or 3D reconstructions were produced. All CT scans at this location are performed using CT dose reduction for ALARA by means of automated exposure control. COMPARISON: None available. FINDINGS: PULMONARY ARTERIES: No pulmonary emboli. THORACIC AORTA: No significant abnormality. HEART: No significant abnormality. CORONARY ARTERIES: No significant calcification. PLEURA: No pleural effusion. No pneumothorax. LYMPH NODES: No significant adenopathy. LUNGS: Faint patchy airspace changes left upper lobe ADDITIONAL FINDINGS: None. UPPER ABDOMEN: No acute findings. SKELETAL STRUCTURES: No significant osseous abnormality. IMPRESSION: 1. No CT evidence for pulmonary embolism. 2. Faint parenchymal changes left upper lobe inflammatory process is a concern Signer Name: Cisco Eng MD Signed: 02/23/2020 6:00 PM Workstation Name: [id number]
[2020-02-23] MEDS ORDERED: MORPHINE 4 MG/1 ML INJ IV ONE (18:06)
[2020-02-23 18:50] VITALS: BP 175/105
== END 2020-02-23 18:52 | disposition home or self-care (01) ==
LOC: ED 07:22
DX: S46.912A Strain of unspecified muscle, fascia and tendon at shoulder and upper arm level, left arm, initial encounter (principal); I10 Essential (primary) hypertension; J45.909 Unspecified asthma, uncomplicated; F17.200 Nicotine dependence, unspecified, uncomplicated; F12.10 Cannabis abuse, uncomplicated; Z79.1 Long term (current) use of non-steroidal anti-inflammatories (NSAID); Z79.899 Other long term (current) drug therapy; Z88.0 Allergy status to penicillin; Z88.2 Allergy status to sulfonamides; Z88.8 Allergy status to other drugs, medicaments and biological substances; X58.XXXA Exposure to other specified factors, initial encounter; Y93.89 Activity, other specified; Y92.89 Other specified places as the place of occurrence of the external cause; Y99.8 Other external cause status
CPT/HCPCS: 36415; 71275; 73030; 80053; 85025; 93005; 96374; 99285; J2270; Q9967; Q0162

== ENCOUNTER 2020-11-09 03:41 | Emergency (ER) | payer MEDICAID ==
[2020-11-09 04:18] LABS: Basophils # (Auto) 0.1 K/mm3 (0.0-0.1); Basophils % (Auto) 0.9 % (0.0-1.8); Eosinophils # (Auto) 0.1 K/mm3 (0.0-0.4); Hemoglobin 11.5 gm/dl (10.1-14.3); Lymphocytes # (Auto) 2.2 K/mm3 (1.2-5.4); Lymphocytes % (Auto) 22.9 % (13.4-35.0); Mean Corpuscular HGB Conc 33 % (30-34); Mean Corpuscular Volume 76 fl (79-97); Monocytes # (Auto) 0.8 K/mm3 (0.0-0.8); Monocytes % (Auto) 8.1 % (0.0-7.3); Platelet Count 316 K/mm3 (140-440); Red Cell Distribution Width 16.4 % (13.2-15.2)
[2020-11-09 04:30] LABS: INR 0.96 (0.87-1.13); Partial Thromboplastin Time 25.8 Sec. (24.2-36.6)
--- NOTE | 2020-11-09 04:36 | XRay Report ---
CHEST 1 VIEW 11/09/2020 4:23 AM INDICATION / CLINICAL INFORMATION: Chest Pain. COMPARISON: None available. FINDINGS: SUPPORT DEVICES: None. HEART / MEDIASTINUM: No significant abnormality. LUNGS / PLEURA: No significant pulmonary or pleural abnormality. No pneumothorax. ADDITIONAL FINDINGS: No significant additional findings. IMPRESSION: 1. No acute findings. Signer Name: Juventino Haro MD Signed: 11/09/2020 4:32 AM Workstation Name: [id number]
[2020-11-09 04:42] LABS: Alanine Aminotransferase 17 units/L (7-56); Albumin 4.2 g/dL (3.9-5); Blood Urea Nitrogen 9 mg/dL (7-17); Calcium 8.7 mg/dL (8.4-10.2); Hemolysis Index 2
[2020-11-09 04:49] LABS: BUN/Creatinine Ratio 15
[2020-11-09] MEDS ORDERED: MORPHINE 4 MG/1 ML INJ IV ONE (05:04)
[2020-11-09] MEDS ORDERED: FAMOTIDINE 20 MG/2 ML INJ IV ONE (05:04)
[2020-11-09] MEDS ORDERED: ONDANSETRON 4 MG/2 ML INJ IV ONE (05:04)
--- NOTE | 2020-11-09 05:09 | Emergency Department Report ---
<LUIS GARCIA - Last Filed: 11/09/20 05:58> ED Chest Pain HPI - General Chief Complaint: Chest Pain Stated Complaint: CHEST PAIN Time Seen by Provider: 11/09/20 05:04 Source: patient Mode of arrival: Stretcher Limitations: No Limitations - History of Present Illness Initial Comments: 45-year-old female the past medical history of pulmonary embolism currently on Eliquis, and hypertension presents to the hospital complaining of burning pain with swallowing for last 2 days and chest pain. Patient has had very little p.o. intake for the last 2 days secondary to pain with swallowing. Patient states she has been pressing on her sternum doing pain episodes and attempt to provide relief. While sleeping this morning the burning sternal pain woke her up from sleep and she had 2 episodes of blood-streaked vomitus. Patient reports she has had black stools for the last 3 days. She denies history of peptic ulcer disease or GI bleed. Last NSAID use was Aleve 1 month ago. She took [id number] Pepcid without relief. She is having to crush her medication in order to tolerate swallowing them. Patient complains of some epigastric soreness. Patient is a smoker positive family history of CAD. - Related Data Previous Rx's Medication Instructions Recorded Last Taken Type Aspirin EC [Halfprin EC] 81 mg PO QDAY #100 tablet. 05/15/18 Unknown Rx Ibuprofen [Motrin 600 MG tab] 600 mg PO Q8H PRN #20 tablet 10/31/18 Unknown Rx amLODIPine [Norvasc] 5 mg PO DAILY #30 tab 10/31/18 Unknown Rx methOCARBAMOL [Robaxin TAB] 750 mg PO BID #20 tab 02/23/20 Unknown Rx traMADoL [Ultram 50 MG tab] 50 mg PO Q6HR PRN #15 tablet 02/23/20 Unknown Rx PANTOPRAZOLE SODIUM (nf) [Protonix 40 mg PO QDAY #30 granpkt. 11/09/20 Unknown Rx GRANULES] Allergies Allergy/AdvReac Type Severity Reaction Status Date / Time lisinopril Allergy Unknown Verified 05/15/18 13:51 Penicillins Allergy Unknown Verified 11/09/20 04:11 Sulfa (Sulfonamide Allergy Unknown Verified 11/09/20 04:11 Antibiotics) Heart Score - HEART Score History: Slightly suspicious EKG: Non-specific Age: < 45 Risk factors: > 3 risk factors or hx of atherosclerotic disease Troponin: < normal limit HEART Score: 3 - EKG Read Time Time EKG Completed: 03:55 EKG Read Time: 03:59 ED Review of Systems Comment: All other systems reviewed and negative ED Past Medical Hx - Past Medical History Previous Medical History?: Yes Hx Hypertension: Yes Hx Pulmonary Embolism: Yes Hx Asthma: Yes Additional medical history: nodules on lungs - Surgical History Past Surgical History?: No - Social History Smoking Status: Never Smoker Substance Use Type: None - Medications Home Medications: Home Medications Medication Instructions Recorded Confirmed Last Taken Type Aspirin EC [Halfprin EC] 81 mg PO QDAY #100 tablet. 05/15/18 Unknown Rx Ibuprofen [Motrin 600 MG tab] 600 mg PO Q8H PRN #20 tablet 10/31/18 Unknown Rx amLODIPine [Norvasc] 5 mg PO DAILY #30 tab 10/31/18 Unknown Rx methOCARBAMOL [Robaxin TAB] 750 mg PO BID #20 tab 02/23/20 Unknown Rx traMADoL [Ultram 50 MG tab] 50 mg PO Q6HR PRN #15 tablet 02/23/20 Unknown Rx PANTOPRAZOLE SODIUM (nf) [Protonix 40 mg PO QDAY #30 granpkt. 11/09/20 Unknown Rx GRANULES] ED Physical Exam - General Limitations: No Limitations - Other Other exam information: General: Moderate distress secondary to pain Head: Atraumatic Eyes: normal appearance ENT: Moist mucous membranes Neck: Normal appearance, no midline tenderness Chest: Clear to auscultation bilaterally, sternal chest wall tenderness CV: Regular rate and rhythm Abdomen: Soft, normal bowel sounds, epigastric tenderness, nondistended, no rebound or guarding Back: Normal inspection Extremity: Normal inspection, full range of motion Neuro: Alert O x 3, no facial asymmetry, speech clear, no gross motor sensory d eficit Psych: Appropriate behavior Skin: No rash ED Course - Reevaluation(s) Reevaluation #1: 11/09/20 05:44 45-year-old female with chest pain. Symptoms suggestive of GI cause given that pain/burning occurred with swallowing to the point that patient was avoiding eating. She was awakened this morning by burning chest pain and 2 episodes of blood-streaked vomitus. Although she complains of black stools for the last several days she has dark brown guaiac-negative stools on examination. She is currently on Eliquis for pulmonary embolism. No signs of anemia or coagulopathy. Patient presents with significant hypertension but history of the same in the past. Patient does have chest wall tenderness on examination but states that she has been pressing firmly on her chest during pain episodes in an effort to alleviate her pain. Patient will receive a CT angiogram chest and a CT abdomen and pelvis to rule out acute pathology. Patient has mild hypokalemia and will need p.o. potassium but awaiting ct result. Second troponin is also pending ultimately case will have to be signed out to oncoming provider Dr. Donahue to follow SHIRAZ score - Shiraz Score Age > 65: (0) No Aspirin use within the Past 7 Days: (0) No 2 or more Angina events in past 24 hrs: (0) No Known CAD with more than 50% Stenosis: (0) No Elevated Cardiac Markers: (0) No ST Deviation Greater than 0.5mm: (0) No ED Medical Decision Making - Lab Data Result diagrams: 11/09/20 04:05 11/09/20 04:05 - EKG Data -: EKG Interpreted by Hi EKG shows normal: sinus rhythm, ST-T waves Rate: normal - Radiology Data Radiology results: report reviewed CHEST 1 VIEW 11/09/2020 4:23 AM INDICATION / CLINICAL INFORMATION: Chest Pain. COMPARISON: None available. FINDINGS: SUPPORT DEVICES: None. HEART / MEDIASTINUM: No significant abnormality. LUNGS / PLEURA: No significant pulmonary or pleural abnormality. No pneumothorax. ADDITIONAL FINDINGS: No significant additional findings. IMPRESSION: 1. No acute findings. ED Disposition Clinical Impression: Hypokalemia, Odynophagia, Uncontrolled hypertension Disposition: 01 HOME / SELF CARE / HOMELESS Condition: Stable Instructions: Dysphagia, Hypertension (ED) Prescriptions: PANTOPRAZOLE SODIUM (nf) [Protonix GRANULES] 40 mg PO QDAY #30 karenpkt Referrals: PRIMARY CARE, [Primary Care Provider] - 3-5 Days [facility] [Provider Group] - 3-5 Days <GURWINDER DONAHUE - Last Filed: 11/09/20 09:34> ED Review of Systems ROS: Stated complaint: CHEST PAIN Other details as noted in HPI ED Course Vital Signs 11/09/20 11/09/20 04:18 07:17 Temperature 98.9 F Pulse Rate 96 H 70 Respiratory 18 24 Rate Blood Pressure 201/109 Blood Pressure 170/131 [Left] O2 Sat by Pulse 99 98 Oximetry ED Medical Decision Making - Lab Data Result diagrams: 11/09/20 04:05 11/09/20 04:05 - Medical Decision Making Patient signed out to me by Dr. Farmer to follow-up on CT scan results. Patient reports burning pain with swallowing. History of PE, currently on Eliquis. CT abdomen pelvis unremarkable except for right adnexal cyst. There have been some issues with Nubimetrics and Vulcan as the report is not crossing over. I spoke with the radiologist, Dr. Madrigal who states that the CT has been read and is negative for PE or any other acute pulmonary disease. She states there were a few right upper lobe pulmonary nodules unchanged from prior exam, and also some nonspecific distal esophageal wall thickening noted. I have explained this to the patient, and advised to follow-up with GI. She is agreeable with this plan. Critical care attestation.: If time is entered above; I have spent that time in minutes in the direct care of this critically ill patient, excluding procedure time. ED Disposition Is pt being admited?: No Time of Disposition: 09:34
--- NOTE | 2020-11-09 06:43 | Cat Scan Report ---
CT ABDOMEN AND PELVIS WITH CONTRAST HISTORY: chest pain, pain with swallowing, vomit blood. COMPARISON: None. TECHNIQUE: CT images of the abdomen and pelvis were obtained following administration of intravenous contrast. All CT scans at this location are performed using CT dose reduction for ALARA by means of automated exposure control. CONTRAST: 100 ml of intravenous contrast administered. FINDINGS: Lungs/bones: The liver, spleen, adrenal glands, pancreas, gallbladder and kidneys appear normal. No hydronephrosis. Appendix appears normal. No focal inflammatory change in the bowel loops. There is fl uid within the endometrial. No free fluid in the pelvis. Right adnexal cysts suggested. No acute bone findings are seen. Small hypodensity in the right hepatic lobe may represent a cyst Abdomen/pelvis: IMPRESSION: 1. No acute findings are identified. There is fluid in the endometrium with right adnexal cyst. Signer Name: Juventino Haro MD Signed: 11/09/2020 6:38 AM Workstation Name: [id number]
[2020-11-09] MEDS ORDERED: HYDROmorphone 1 MG/1 ML INJ IV ONE (06:57)
[2020-11-09] MEDS ORDERED: POTASSIUM CHLORIDE ER 20 MEQ TAB PO ONE (09:09)
[2020-11-09] MEDS ORDERED: POTASSIUM CHLORIDE 20 MEQ PACKET PO SCH (10:00)
[2020-11-09 10:47] VITALS: BP 148/99
--- NOTE | 2020-11-10 09:46 | Electrocardiograph Report ---
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
--- NOTE | 2020-11-11 13:20 | Cat Scan Report ---
CTA CHEST WITH CONTRAST INDICATION / CLINICAL INFORMATION: chest pain, pain with swallowing. TECHNIQUE: Axial CT images were obtained through the chest after injection of IV contrast. 3 plane VA P and/or 3D reconstructions were produced. All CT scans at this location are performed using CT dose reduction for ALARA by means of automated exposure control. COMPARISON: None available. FINDINGS: The pulmonary arteries are patent without filling defect or evidence for PTE. Mildly prominent axilla ry nodes are seen measuring up to 1 cm no focal consolidation is identified. No large effusion. Few t iny nodules in the right upper lung measures 3 mm. Cervical spine mildly thickened IMPRESSION: 1. No CT evidence for pulmonary embolism. 2. 2 tiny 3 mm nodules in the right upper lung. These appear unchanged since prior exam See recommend ations below. 3. Question mild thickening of the distal esophagus however there is incomplete distention. No signif icant inflammatory changes seen. No significant change since prior exam. INCIDENTAL PULMONARY NODULE RECOMMENDATION RECOMMENDATION: Solid Nodule size <6 mm -- Single or Multiple - Low Risk Patient: No routine follow-up - High Risk Patient: Optional CT at 12 months Note These recommendations do not apply to lung cancer screening, patients with immunosuppression, o r patients with known primary cancer. Note Newly detected indeterminate nodule in persons 35 years of age or older. Persons under the age of 35 should not receive follow-up unless there is a known primary cancer. Note Perifissural Nodule is a fissure-attached/subpleural, homogeneous, solid nodule that has smooth margins and an oval, lentiform, or triangular shape. They represent about 20% of nodules detected in lung cancer screening, are invariably benign, and do not require follow-up. Nodules 10 mm or larger (or those with suspicious features) will continue to be managed based on the size criteria. Low Risk Patient = minimal or absent history of smoking and of other known risk factors. High Risk Patient = history of smoking or of other known risk factors. Nodule dimensions are average of long and short axes, rounded to the nearest millimeter. Based on 2017 Fleischner Society Guidelines found in Radiology 2017 284:228-243. https://doi.org/10.1148/radiol.[email or web address] https://www.ncbi.nlm.nih.gov/pmc/articles/KUG1901553/ Signer Name: Juventino Haro MD Signed: 11/09/2020 6:43 AM Workstation Name: [id number]
== END 2020-11-09 10:46 | disposition home or self-care (01) ==
LOC: ED 03:41
DX: E87.6 Hypokalemia (principal); R13.10 Dysphagia, unspecified; I10 Essential (primary) hypertension; I26.99 Other pulmonary embolism without acute cor pulmonale; J45.909 Unspecified asthma, uncomplicated; R91.8 Other nonspecific abnormal finding of lung field; Z88.0 Allergy status to penicillin; Z88.2 Allergy status to sulfonamides; Z88.8 Allergy status to other drugs, medicaments and biological substances
CPT/HCPCS: 36415; 71045; 71275; 74177; 80053; 82271; 83690; 84484; 84703; 85025; 85610; 85730; 93005; 96374; 96375; 99285; J1170; J2270; J2405; Q9967

== ENCOUNTER 2021-05-24 06:41 | Inpatient (IN) | payer MEDICAID ==
--- NOTE | 2021-05-24 06:55 | Emergency Department Report ---
ED Chest Pain HPI - General Stated Complaint: CHEST PAIN Time Seen by Provider: 05/24/21 06:50 Source: patient, EMS, old records reviewed Mode of arrival: Stretcher Limitations: No Limitations - History of Present Illness Initial Comments: 45-year-old female past medical history hypertension, gastritis/coffee ground emesis, pulmonary emboli no longer on anticoagulation, smoker, elevated cholesterol compliant with medication presents to the office complaining of sudden onset of left-sided chest pressure with radiation to left arm with associated nausea, vomiting, shortness of breath that started at 4 AM. Pain is constant. No aggravating alleviating factors reported. Patient received aspirin 324 mg in route. No other medications provided since patient did not have IV access upon arrival. Patient with significant hypertension. - Related Data Previous Rx's Medication Instructions Recorded Last Taken Type amLODIPine 5 mg PO DAILY #30 tab 10/31/18 Unknown Rx methOCARBAMOL [Robaxin TAB] 750 mg PO BID #20 tab 02/23/20 05/23/21 Rx traMADoL [Ultram 50 MG tab] 50 mg PO Q6HR PRN #15 tablet 02/23/20 Unknown Rx PANTOPRAZOLE SODIUM (nf) [Protonix 40 mg PO QDAY #30 bulmaro. 11/09/20 Unknown Rx GRANULES] Antacid [Alum-Mag Hydrox-Simeth 30 ml PO Q4H PRN oral.liqd 11/10/20 Unknown Rx [id number]/5Ml] Pantoprazole [Protonix TAB] 40 mg PO QDAC #30 tablet 11/10/20 05/23/21 Rx Sucralfate [Carafate] 1 gm PO ACHS #90 oral.liqd 11/10/20 05/23/21 Rx amLODIPine 10 mg PO QDAY tablet 11/10/20 Unknown Rx traZODone [Desyrel] 50 mg PO QHS PRN tablet 11/10/20 05/23/21 Rx Allergies Allergy/AdvReac Type Severity Reaction Status Date / Time lisinopril Allergy Unknown Verified 11/09/20 22:25 Penicillins Allergy Unknown Verified 11/09/20 22:25 Sulfa (Sulfonamide Allergy Unknown Verified 11/09/20 22:25 Antibiotics) Heart Score - HEART Score History: Highly suspicious EKG: Significant ST-depression Age: 45-65 Risk factors: 1-2 risk factors Troponin: 1-3x normal limit HEART Score: 7 - EKG Read Time Time EKG Completed: 06:40 EKG Read Time: 06:40 ED Review of Systems ROS: Stated complaint: CHEST PAIN Other details as noted in HPI Comment: All other systems reviewed and negative ED Past Medical Hx - Past Medical History Hx Hypertension: Yes (BP elevated on arrival to pre-procedure area) Hx Heart Attack/AMI: No Hx Pulmonary Embolism: Yes Hx Liver Disease: No Hx Renal Disease: No Hx Asthma: Yes Additional medical history: nodules on lungs - Social History Smoking Status: Current Some Day Smoker - Medications Home Medications: Home Medications Medication Instructions Recorded Confirmed Last Taken Type amLODIPine 5 mg PO DAILY #30 tab 10/31/18 05/24/21 Unknown Rx methOCARBAMOL [Robaxin TAB] 750 mg PO BID #20 tab 02/23/20 05/24/21 05/23/21 Rx traMADoL [Ultram 50 MG tab] 50 mg PO Q6HR PRN #15 tablet 02/23/20 05/24/21 Unknown Rx PANTOPRAZOLE SODIUM (nf) [Protonix 40 mg PO QDAY #30 granpkt.dr 11/09/20 Unknown Rx GRANULES] Antacid [Alum-Mag Hydrox-Simeth 30 ml PO Q4H PRN oral.liqd 11/10/20 05/24/21 Unknown Rx [id number]/[id number]] Pantoprazole [Protonix TAB] 40 mg PO QDAC #30 tablet 11/10/20 05/24/21 05/23/21 Rx Sucralfate [Carafate] 1 gm PO ACHS #90 oral.liqd 11/10/20 05/24/21 05/23/21 Rx amLODIPine 10 mg PO QDAY tablet 11/10/20 05/24/21 Unknown Rx traZODone [Desyrel] 50 mg PO QHS PRN tablet 11/10/20 05/24/21 05/23/21 Rx ED Physical Exam - Other Other exam information: General: Moderate distress secondary to pain Head: Atraumatic Eyes: normal appearance ENT: Moist mucous membranes Neck: Normal appearance, no midline tenderness Chest: Tachypneic, clear to auscultation CV: Regular rate and rhythm Abdomen: Soft, normal bowel sounds, nontender, nondistended, no rebound or guarding Back: Normal inspection Extremity: Normal inspection, full range of motion Neuro: Alert O x 3, no facial asymmetry, speech clear, no gross motor sensory deficit Psych: Appropriate behavior Skin: No rash ED Course Vital Signs 05/24/21 05/24/21 05/24/21 07:03 07:15 07:25 Temperature 98 F Pulse Rate 109 H 119 H Respiratory 18 24 24 Rate Blood Pressure 202/118 Blood Pressure 160/107 [Right] O2 Sat by Pulse 98 100 100 Oximetry - Consultations Consultation #1: 05/24/21 06:46 case d/w DR Haq, ekg reviewed, rec to call code stemi/clinical lab specialist activation MACI score - Maci Score Age > 65: (0) No Aspirin use within the Past 7 Days: (0) No 3 or more CAD Risk Factors: (1) Yes 2 or more Angina events in past 24 hrs: (1) Yes Known CAD with more than 50% Stenosis: (0) No Elevated Cardiac Markers: (1) Yes ST Deviation Greater than 0.5mm: (1) Yes MACI Score: 4 ED Medical Decision Making - Lab Data Result diagrams: 05/26/21 05:18 05/26/21 05:18 - EKG Data -: EKG Interpreted by Me EKG shows normal: sinus rhythm, ST-T waves (inf and anteriorlaterol leads) Rate: tachycardia - EKG Data When compared to previous EKG there are: changes noted - Medical Decision Making 45-year female presents to the hospital active chest pain that started at [address] elevation MN upon arrival. Emergent EKG and IV access obtained. Nitroglycerin titrated quickly up to 80 mics per minute and patient received heparin bolus, Plavix, Zofran and multiple doses of morphine. Patient transferred to [facility] for emergent intervention. Hospitalist informed. ICU attending informed Critical Care Time: Yes Critical care time in (mins) excluding proc time.: 35 Critical care attestation.: If time is entered above; I have spent that time in minutes in the direct care of this critically ill patient, excluding procedure time. Critical Care Time: 35 Minutes of critical care time excluding procedures were used in the care of the patient. I came immediately to the bedside upon patient's arrival. I obtained history from EMS at the bedside. I discussed treatment plan with the nursing team members. I reviewed electronic record. Patient required multiple interventions and reassessments. Spoke emergently from consultants/staff physical therapy assistant and hospitalist for collaborative care ED Disposition Clinical Impression: ST elevation MN (STEMI), Hypertensive emergency, Smoker Disposition: 09 ADMITTED INPATIENT Is pt being admited?: Yes Condition: Stable Time of Disposition: 07:27 (hospitalist/veda)
[2021-05-24] MEDS: HEPARIN 1,000 UNIT/1 ML VIAL IV ONE ×2 (06:59→07:00)
[2021-05-24] MEDS: MORPHINE 4 MG/1 ML INJ IV ONE ×2 (06:59→07:00)
[2021-05-24] MEDS: ONDANSETRON 4 MG/2 ML INJ IV ONE ×2 (07:00→09:40)
[2021-05-24] MEDS ORDERED: NITROGLYCERIN DRIP 50 MG/250 ML BOTTLE IV SCH (07:00)
[2021-05-24] MEDS ORDERED: ONDANSETRON 4 MG/2 ML INJ IV ONE (07:05)
[2021-05-24 07:13] LABS: Basophils # (Auto) 0.1 K/mm3 (0.0-0.1); Basophils % (Auto) 0.7 % (0.0-1.8); Hematocrit 33.7 % (30.3-42.9); Hemoglobin 10.4 gm/dl (10.1-14.3); Mean Corpuscular HGB Conc 31 % (30-34); Monocytes # (Auto) 0.8 K/mm3 (0.0-0.8); Monocytes % (Auto) 5.7 % (0.0-7.3); Platelet Count 402 K/mm3 (140-440); Red Blood Count 4.93 M/mm3 (3.65-5.03); Red Cell Distribution Width 18.2 % (13.2-15.2)
[2021-05-24] MEDS ORDERED: HEPARIN/NS 5000 UNIT/500ML 1,000 ML IR ONE (07:18)
[2021-05-24] MEDS ORDERED: fentaNYL 100 MCG/2 ML INJ ONE (07:18)
[2021-05-24] MEDS ORDERED: HEPARIN 10,000 UNITS/10 ML VIAL ONE (07:18)
[2021-05-24] MEDS ORDERED: MIDAZOLAM 2 MG/2 ML INJ ONE (07:18)
[2021-05-24] MEDS ORDERED: SODIUM CHLORIDE 0.9% 500 ML 500 ML ONE (07:19)
[2021-05-24] MEDS ORDERED: VERAPAMIL 5 MG/2 ML INJ ONE (07:19)
[2021-05-24] MEDS ORDERED: LIDOCAINE (1%) 10 MG/1 ML VIAL 20 ML MDV ONE (07:19)
[2021-05-24] MEDS ORDERED: NITROGLYCERIN SYRINGE 3 ML ONE (07:19)
[2021-05-24] MEDS ORDERED: PHENYLEPHRINE/NS 1,000 MCG/10 ML SYRINGE (OR USE) IV ONE (07:20)
[2021-05-24] MEDS ORDERED: EPINEPHrine 1 MG/10 ML SYRINGE ONE (07:20)
[2021-05-24] MEDS ORDERED: MORPHINE 4 MG/1 ML INJ IV ONE (07:21)
[2021-05-24 07:23] LABS: Mean Corpuscular Volume 68 fl (79-97)
[2021-05-24] MEDS ORDERED: CLOPIDOGREL 300 MG TAB PO ONE (07:23)
[2021-05-24 07:24] LABS: INR 1.06 (0.87-1.13)
[2021-05-24 07:35] LABS: Partial Thromboplastin Time 115.1 Sec. (24.2-36.6)
[2021-05-24 07:44] LABS: Creatine Kinase MB 36.4 ng/mL (0.0-4.0)
[2021-05-24] MEDS ORDERED: SODIUM CHLORIDE 0.9% 1000 ML 1,000 ML ONE (07:44)
[2021-05-24] MEDS ORDERED: MIDAZOLAM 2 MG/2 ML INJ IV ONE ×3 (07:44→08:13)
[2021-05-24] MEDS ORDERED: fentaNYL 100 MCG/2 ML INJ IV ONE ×3 (07:45→08:13)
[2021-05-24] MEDS ORDERED: LIDOCAINE (1%) 10 MG/1 ML VIAL 20 ML MDV INFILTRATI ONE ×2 (07:45→07:57)
[2021-05-24] MEDS ORDERED: VERAPAMIL 5 MG/2 ML INJ ART-SHEATH ONE ×2 (07:45→07:58)
[2021-05-24 07:46] LABS: Alanine Aminotransferase 22 units/L (7-56); Albumin 4.8 g/dL (3.9-5); Blood Urea Nitrogen 4 mg/dL (7-17); Calcium 9.3 mg/dL (8.4-10.2); Hemolysis Index 1
[2021-05-24] MEDS ORDERED: NITROGLYCERIN 600 MCG/3 ML SYRINGE ART-SHEATH ONE ×2 (07:46→07:58)
[2021-05-24] MEDS ORDERED: HEPARIN 10,000 UNITS/10 ML VIAL ART-SHEATH ONE ×2 (07:46→07:59)
--- NOTE | 2021-05-24 07:51 | XRay Report ---
CHEST 1 VIEW 05/24/2021 7:29 AM INDICATION / CLINICAL INFORMATION: chest pain. COMPARISON: 11/09/2020 FINDINGS: SUPPORT DEVICES: None. HEART / MEDIASTINUM: No significant abnormality. LUNGS / PLEURA: Mild increased pulmonary vascularity No pneumothorax. ADDITIONAL FINDINGS: No significant additional findings. IMPRESSION: 1. Mild increased pulmonary vascularity Signer Name: Juventino Haro MD Signed: 05/24/2021 7:46 AM Workstation Name: [id number]
[2021-05-24 07:57] LABS: BUN/Creatinine Ratio 6
[2021-05-24] MEDS ORDERED: ACETAMINOPHEN 325 MG TAB PO PRN (08:02)
[2021-05-24] MEDS ORDERED: ONDANSETRON 4 MG/2 ML INJ ONE (08:03)
--- NOTE | 2021-05-24 08:10 | History and Physical Report ---
History of Present Illness History of present illness: 45-year-old female with past medical history of hypertension, nicotine abuse, PE no longer on anticoagulation, hyperlipidemia presenting to our facility with chief complaint of chest pain. Patient states that pain was constant, rated as a 10 out of 10, was centrally located in her chest and describes it as a squeezing pressure sensation. Pain did not radiate. Patient states onset of s ymptoms was approximately 4 AM. Patient denied any aggravating or relieving factors. Patient was given aspirin 324 mg on route to our facility. ER physician completed EKG which demonstrated ST segment elevation. STEMI pathway immediately activated and cardiology on-call took patient to [facility]. Patient received drug-eluting stent to LAD. I saw and examined the patient at bedside in the ICU. Patient was resting with continued complaint of chest pain. She states that the chest pain had some improvement but she still had symptoms that were causing her distress. She states that she still feels the same squeezing chest pain. Remainder of ROS negative except for stated above PMHx: Hypertension, hyperlipidemia, nicotine abuse, prior history of pulmonary embolism PSHx: Hysterectomy FHx: Reviewed noncontributory SHx: Tobacco use-3 to 4 cigarettes/day ETOH Use-denies Recreational Drug Use-marijuana Medications and Allergies Allergies Allergy/AdvReac Type Severity Reaction Status Date / Time lisinopril Allergy Unknown Verified 11/09/20 22:25 Penicillins Allergy Unknown Verified 11/09/20 22:25 Sulfa (Sulfonamide Allergy Unknown Verified 11/09/20 22:25 Antibiotics) Home Medications Medication Instructions Recorded Confirmed Last Taken Type amLODIPine 5 mg PO DAILY #30 tab 10/31/18 05/24/21 Unknown Rx methOCARBAMOL [Robaxin TAB] 750 mg PO BID #20 tab 02/23/20 05/24/21 05/23/21 Rx traMADoL [Ultram 50 MG tab] 50 mg PO Q6HR PRN #15 tablet 02/23/20 05/24/21 Unknown Rx PANTOPRAZOLE SODIUM (nf) [Protonix 40 mg PO QDAY #30 bul[place]o. 11/09/20 05/24/21 Unknown Rx GRANULES] Antacid [Alum-Mag Hydrox-Simeth 30 ml PO Q4H PRN oral.liqd 11/10/20 05/24/21 Unknown Rx [id number]/5Ml] Pantoprazole [Protonix TAB] 40 mg PO QDAC #30 tablet 11/10/20 05/24/21 05/23/21 Rx Sucralfate [Carafate] 1 gm PO ACHS #90 oral.liqd 11/10/20 05/24/21 05/23/21 Rx amLODIPine 10 mg PO QDAY tablet 11/10/20 05/24/21 Unknown Rx traZODone [Desyrel] 50 mg PO QHS PRN tablet 11/10/20 05/24/21 05/23/21 Rx Active Meds: Active Medications Acetaminophen (Acetaminophen 325 Mg Tab) 650 mg PO Q6H PRN PRN Reason: Pain MILD(1-3)/Fever >100.5/BOYD Nitroglycerin/Dextrose (Tridil Drip 50mg/250ml) 50 mg in 250 mls @ 3 mls/hr IV TITR LEN; Protocol Last Titration: 05/24/21 07:20 Dose: 80 mcg/min, 24 mls/hr Morphine Sulfate (Morphine 2 Mg/1 Ml Inj) 2 mg IV Q4H PRN PRN Reason: Pain, Moderate (4-6) Ondansetron HCl (Ondansetron 4 Mg/2 Ml Inj) 4 mg IV Q8H PRN PRN Reason: Nausea And Vomiting Sodium Chloride (Sodium Chloride 0.9% 10 Ml Flush Syringe) 10 ml IV BID LEN Sodium Chloride (Sodium Chloride 0.9% 10 Ml Flush Syringe) 10 ml IV PRN PRN PRN Reason: LINE FLUSH Exam - Physical Exam Narrative exam: Physical Exam: VITAL SIGNS: Reviewed. GENERAL: The patient appears normally developed, Vital signs as documented. Mild from chest pain. HEAD: No signs of head trauma. EYES: Pupils are equal. Extraocular motions intact. EARS: Hearing grossly intact. MOUTH: Oropharynx is normal. NECK: No adenopathy, no JVD. CHEST: Chest with clear breath sounds bilaterally. No wheezes, rales, or rhonchi. CARDIAC: Regular rate and rhythm. S1 and S2, without murmurs, gallops, or rubs. VASCULAR: No Edema. Peripheral pulses normal and equal in all extremities. ABDOMEN: Soft, non tender and non distended. No rebound or guarding, and no masses palpated. Bowel Sounds normal. MUSCULOSKELETAL: Good range of motion of all major joints. Extremities without clubbing, cyanosis or edema. NEUROLOGIC EXAM: Alert and oriented x 4. no focal sensory or strength deficits. PSYCHIATRIC: Mood normal. SKIN: Ecchymosis over right wrist at the site of radial access. Good perfusion of hand and finger nailbeds. Pulses equal bilaterally. Detail exam as documented in skin assessment - Constitutional Vitals: Temp Pulse Resp BP Pulse Ox 98 F 119 H 24 160/107 100 05/24/21 07:03 05/24/21 07:25 05/24/21 07:25 05/24/21 07:25 05/24/21 07:25 HEART Score - HEART Score EKG: Significant ST-depression Age: 45-65 Risk factors: 1-2 risk factors Troponin: Troponin T 0.134 ng/mL (0.00-0.029) H* 05/24/21 07:02 Results - Labs CBC & Chem 7: 05/24/21 07:02 05/24/21 07:02 Labs: Laboratory Last Values WBC 14.6 K/mm3 (4.5-11.0) H 05/24/21 07:02 RBC 4.93 M/mm3 (3.65-5.03) 05/24/21 07:02 Hgb 10.4 gm/dl (10.1-14.3) 05/24/21 07:02 Hct 33.7 % (30.3-42.9) 05/24/21 07:02 MCV 68 fl (79-97) L 05/24/21 07:02 MCH 21 pg (28-32) L 05/24/21 07:02 MCHC 31 % (30-34) 05/24/21 07:02 RDW 18.2 % (13.2-15.2) H 05/24/21 07:02 Plt Count 402 K/mm3 (140-440) 05/24/21 07:02 Lymph % (Auto) 7.0 % (13.4-35.0) L 05/24/21 07:02 [place] % (Auto) 5.7 % (0.0-7.3) 05/24/21 07:02 Eos % (Auto) 0.0 % (0.0-4.3) 05/24/21 07:02 Baso % (Auto) 0.7 % (0.0-1.8) 05/24/21 07:02 Lymph # (Auto) 1.0 K/mm3 (1.2-5.4) L 05/24/21 07:02 [place] # (Auto) 0.8 K/mm3 (0.0-0.8) 05/24/21 07:02 Eos # (Auto) 0.0 K/mm3 (0.0-0.4) 05/24/21 07:02 Baso # (Auto) 0.1 K/mm3 (0.0-0.1) 05/24/21 07:02 Seg Neutrophils % 86.6 % (40.0-70.0) H 05/24/21 07:02 Seg Neutrophils # 12.7 K/mm3 (1.8-7.7) H 05/24/21 07:02 PT 15.0 Sec. (12.2-14.9) H 05/24/21 07:02 INR 1.06 (0.87-1.13) 05/24/21 07:02 APTT 115.1 Sec. (24.2-36.6) H* 05/24/21 07:02 Sodium 136 mmol/L (137-145) L 05/24/21 07:02 Potassium 3.2 mmol/L (3.6-5.0) L 05/24/21 07:02 Chloride 100.7 mmol/L (98-107) 05/24/21 07:02 Carbon Dioxide 16 mmol/L (22-30) L 05/24/21 07:02 Anion Gap 23 mmol/L 05/24/21 07:02 BUN 4 mg/dL (7-17) L 05/24/21 07:02 Creatinine 0.7 mg/dL (0.6-1.2) 05/24/21 07:02 Estimated GFR > 60 ml/min 05/24/21 07:02 BUN/Creatinine Ratio 6 % 05/24/21 07:02 Glucose 140 mg/dL (65-100) H 05/24/21 07:02 Calcium 9.3 mg/dL (8.4-10.2) 05/24/21 07:02 Total Bilirubin 0.20 mg/dL (0.1-1.2) 05/24/21 07:02 AST 36 units/L (5-40) 05/24/21 07:02 ALT 22 units/L (7-56) 05/24/21 07:02 Alkaline Phosphatase 107 units/L (35-129) 05/24/21 07:02 CK-MB (CK-2) 36.4 ng/mL (0.0-4.0) H 05/24/21 07:02 Troponin T 0.134 ng/mL (0.00-0.029) H* 05/24/21 07:02 Total Protein 8.4 g/dL (6.3-8.2) H 05/24/21 07:02 Albumin 4.8 g/dL (3.9-5) 05/24/21 07:02 Albumin/Globulin Ratio 1.3 % 05/24/21 07:02 Assessment and Plan Assessment and plan: Assessment and plan #STEMI -Acute inferolateral ST segment elevation myocardial infarction Cath findings demonstrate greater than 95% stenosis in the mid LAD. Immediate primary angioplasty with deployment of [place] to LAD. Subsequent EKG demonstrates resolution of ST elevations on EKG and chest pain per cardiology report Aggrastat per cardiology recommendation, Plavix, aspirin Initiated on as needed morphine and [place] for pain control Interventional cardiology following Critical care following #Hypertensive emergency -Nitroglycerin gtt. -Blood pressure better controlled on encounter. Initiated on losartan, metoprolol #Essential hypertension -Allergy to lisinopril please avoid -Initiated on losartan, metoprolol by cardiology #Coronary artery disease -95% occlusion in mid LAD, please refer to official cath report -Initiated on aspirin, Plavix, atorvastatin, Ranexa by cardiology #Hyperlipidemia -Statin as above #History of pulmonary embolism no longer on anticoagulation # Nicotine Abuse. - Cigarettes 3-4/day - behavioral health counseling administered which included education on benefits of smoking cessation as well as options for quitting. +15 min. #History of THC use #Advance care planning Disease education conducted, care plan discussed, diagnoses discussed, prognosis discussed, patient is full code, patient acknowledges understanding and agree with care plan, +30 minutes. Dispo: Intensive care unit, will observe overnight and likely downgrade to medical floor tomorrow The high probability of a clinically significant, sudden or life threatening deterioration of the [cardiac] system(s) required my full and direct attention, intervention and personal management. The aggregate critical care time was [60] minutes. This time is in addition to time spent performing reported procedures but includes the following: [x] Data Review and interpretation [x] Patient assessment and monitoring of vital signs [x] Documentation [x] Medication orders and management
[2021-05-24] MEDS ORDERED: HEPARIN 10,000 UNITS/10 ML VIAL IV ONE ×2 (08:15→08:26)
[2021-05-24] MEDS ORDERED: TIROFIBAN/NS 12,500 MCG/250 ML BAG IV ONE (08:16)
[2021-05-24] MEDS ORDERED: TIROFIBAN 12.5 MG/250 ML BOLUS (50 MCG/ML) IV ONE (08:25)
[2021-05-24] MEDS ORDERED: TIROFIBAN/NS 12.5 MG/250 ML DRIP IV ONE (08:26)
[2021-05-24] MEDS ORDERED: METOPROLOL TARTRATE 5 MG/5 ML INJ IV ONE ×2 (08:37→08:38)
[2021-05-24] MEDS ORDERED: NITROGLYCERIN DRIP 50 MG/250 ML BOTTLE IV ONE (08:42)
[2021-05-24] MEDS ORDERED: SODIUM CHLORIDE 0.9% 1000 ML 1,000 ML IV SCH (08:45)
[2021-05-24 08:50] LABS: Chol/HDL Ratio 3.62 %; HDL Cholesterol 53 mg/dL (40-59); LDL Cholesterol,Direct 124 mg/dL (50-130)
--- NOTE | 2021-05-24 08:53 | Consultation ---
History of Present Illness Consult date: 05/24/21 Consult reason: chest pain, other (Acute STEMI) History of present illness: Patient is a 45-year-old woman with a history of chronic tobacco abuse and chronic hypertension, presented to the hospital with severe chest pain, ECG was an acute inferolateral ST segment elevation myocardial infarction. Emergency cardiac catheterization protocol was activated. We found an ulcerated, greater than 95% stenosis of the mid LAD, associated with MACI grade II delayed antegrade flow. We performed immediate, primary angioplasty and stenting with successful deployment of a 3.5 mm drug-eluting stent. Post stenting, chest pain resolved, ST elevations trended back toward baseline, and MACI-3 flow was restored. Past History Past Medical History: COPD, hypertension, other (Tobacco abuse) Medications and Allergies Allergies Allergy/AdvReac Type Severity Reaction Status Date / Time lisinopril Allergy Unknown Verified 11/09/20 22:25 Penicillins Allergy Unknown Verified 11/09/20 22:25 Sulfa (Sulfonamide Allergy Unknown Verified 11/09/20 22:25 Antibiotics) Home Medications Medication Instructions Recorded Confirmed Last Taken Type amLODIPine 5 mg PO DAILY #30 tab 10/31/18 Unknown Rx methOCARBAMOL [Robaxin TAB] 750 mg PO BID #20 tab 02/23/20 Unknown Rx traMADoL [Ultram 50 MG tab] 50 mg PO Q6HR PRN #15 tablet 02/23/20 Unknown Rx PANTOPRAZOLE SODIUM (nf) [Protonix 40 mg PO QDAY #30 11/09/20 Unknown Rx GRANULES] Antacid [Alum-Mag Hydrox-Simeth 30 ml PO Q4H PRN oral.liqd 11/10/20 Unknown Rx [id number]/5Ml] Pantoprazole [Protonix TAB] 40 mg PO QDAC #30 tablet 11/10/20 Unknown Rx Sucralfate [Carafate] 1 gm PO ACHS #90 oral.liqd 11/10/20 Unknown Rx amLODIPine 10 mg PO QDAY tablet 11/10/20 Unknown Rx traZODone [Desyrel] 50 mg PO QHS PRN tablet 11/10/20 Unknown Rx Review of Systems Cardiovascular: chest pain, shortness of breath, no orthopnea, no palpitations, no rapid/irregular heart beat, no edema, no syncope, no lightheadedness Physical Examination Vital Signs Temp Pulse Resp BP Pulse Ox 98 F 109 H 18 202/118 98 05/24/21 07:03 05/24/21 07:03 05/24/21 07:03 05/24/21 07:03 05/24/21 07:03 General appearance: no acute distress HEENT: Positive: PERRL Neck: Positive: neck supple Cardiac: Positive: Reg Rate and Rhythm Lungs: Positive: Decreased Breath Sounds Neuro: Positive: Grossly Intact Abdomen: Positive: Soft Female genitourinary: deferred Skin: Positive: Clear Extremities: Absent: edema Results 05/24/21 07:02 05/24/21 07:02 Cardiac Enzymes 05/24/21 Range/Units 07:02 AST 36 (5-40) units/L CK-MB (CK-2) 36.4 H (0.0-4.0) ng/mL Coagulation 05/24/21 Range/Units 07:02 PT 15.0 H (12.2-14.9) Sec. INR 1.06 (0.87-1.13) APTT 115.1 H* (24.2-36.6) Sec. CBC 05/24/21 Range/Units 07:02 WBC 14.6 H (4.5-11.0) K/mm3 RBC 4.93 (3.65-5.03) M/mm3 Hgb 10.4 (10.1-14.3) gm/dl Hct 33.7 (30.3-42.9) % Plt Count 402 (140-440) K/mm3 Lymph # (Auto) 1.0 L (1.2-5.4) K/mm3 [place] # (Auto) 0.8 (0.0-0.8) K/mm3 Eos # (Auto) 0.0 (0.0-0.4) K/mm3 Baso # (Auto) 0.1 (0.0-0.1) K/mm3 Comprehensive Metabolic Panel 05/24/21 Range/Units 07:02 Sodium 136 L (137-145) mmol/L Potassium 3.2 L (3.6-5.0) mmol/L Chloride 100.7 (98-107) mmol/L Carbon Dioxide 16 L (22-30) mmol/L BUN 4 L (7-17) mg/dL Creatinine 0.7 (0.6-1.2) mg/dL Glucose 140 H (65-100) mg/dL Calcium 9.3 (8.4-10.2) mg/dL AST 36 (5-40) units/L ALT 22 (7-56) units/L Alkaline Phosphatase 107 (35-129) units/L Total Protein 8.4 H (6.3-8.2) g/dL Albumin 4.8 (3.9-5) g/dL EKG interpretations - Telemetry EKG Rhythm: Sinus Rhythm (With acute inferolateral ST elevation myocardial infa rction) Assessment and Plan - Patient Problems (1) ST elevation myocardial infarction (STEMI) Status: Acute Plan to address problem: Patient presented with chest pain and ST elevation inferolateral wall myocardial infarction. Cardiac catheterization showed severe stenosis of the mid LAD, treated with primary angioplasty and stenting, 3.5 mm drug-eluting stent. Patient will be admitted in stable but guarded condition, on guideline directed medical therapy as ordered. An echocardiogram will be ordered for left ventricular function and valvular function assessment.
[2021-05-24] MEDS ORDERED: TIROFIBAN/NS 12,500 MCG/250 ML BAG IV SCH (09:00)
--- NOTE | 2021-05-24 09:02 | Cardiac Catherization Report ---
DATE OF SERVICE: 05/24/2021 CARDIAC CATHETERIZATION AND CORONARY ANGIOPLASTY REPORT REASON FOR PROCEDURE: The patient is a 45-year-old woman with a history of hypertension and chronic tobacco abuse, presents with chest pain and ECG consistent with an acute inferolateral wall, ST elevation myocardial infarction. Emergency cardiac catheterization protocol was activated. PROCEDURES: 1. Left heart catheterization. 2. Selective left and right coronary angiography. 3. Coronary angioplasty and stenting of the mid LAD. 4. Sedation time start 0805 and 0817. DESCRIPTION OF PROCEDURE: The patient was prepped and draped in a sterile fashion under emergency protocol. The right radial cath site was prepped and draped after negative Franklin's test. Right radial artery was entered using the Seldinger technique followed by placement of a 6-[place] hydrophilic sheath. Routine radial cocktail was administered via the sheath. Selective left and right coronary angiography was performed using a #3.5 left [place] and a #4 right [place]. The angiograms were reviewed. CORONARY ANGIOGRAPHY: The left main coronary artery was short and free of significant disease. Left anterior descending artery contained an ulcerated, greater than 95% stenosis of its mid segment, the origin of a small mid diagonal branch. There was MACI grade II reduced flow down the distal LAD beyond the stenosis. The circumflex artery was a large caliber system that was free of significant disease, except for a 90% stenosis of the terminal segment of the mid obtuse marginal. The right coronary artery was a relatively smaller caliber, but dominant vessel. There was a 30% stenosis of the proximal segment, followed by another 30% stenosis of the mid vessel. CORONARY ANGIOPLASTY: We recommended ad hoc, primary angioplasty of the mid LAD. We selected a #3.5 XB LAD guiding catheter and advanced to the left coronary ostium. A 0.014 inch Hot Repairman 50 guidewire was introduced into the LAD, across the lesional segment. Using a primary stenting maneuver, we deployed a 3.5 x 15 mm Resolute drug-eluting stent, across the lesional segment and inflated the stent to optimal pressures. Following stenting, there was an excellent angiographic result at the treated site, MACI 3 flow was restored down the LAD. There was no significant compromise in flow into the small diagonal branch that originated within the lesional segment. Postprocedure, the patient was pain free, ST segments were trending towards baseline, and she remained hemodynamically stable. The catheters and the wires were removed, sheath removed and hemostasis achieved using a TR band. The patient was returned to the postprocedure unit in stable, but guarded condition. CONCLUSION: 1. Acute inferolateral ST elevation myocardial infarction. 2. Emergency cardiac catheterization completed. 3. Greater than 95% stenosis of the mid LAD is the infarct related lesion. 4. Successful primary angioplasty and stenting of the mid LAD with deployment of a #3.5 mm drug-eluting stent. 5. The small vessel disease of the distal segment of the mid obtuse marginal will be recommended for medical therapy. RECOMMENDATIONS: The patient will have an echocardiogram done for left ventricular function assessment and valvular function. TID: [id number] RECEIPT: [id number] VERONICA
[2021-05-24] MEDS: MORPHINE 2 MG/1 ML INJ IV PRN ×3 (10:13→21:40)
[2021-05-24] MEDS ORDERED: POTASSIUM CHLORIDE ER 20 MEQ TAB PO ONE (10:16)
[2021-05-24] MEDS: LOSARTAN 50 MG TAB PO SCH (10:22)
[2021-05-24] MEDS: METOPROLOL TARTRATE 50 MG TAB PO SCH ×2 (10:23→22:08)
[2021-05-24] MEDS: ASPIRIN EC 325 MG TAB PO SCH (10:29)
[2021-05-24] MEDS ORDERED: POTASSIUM CHLORIDE 20 MEQ PACKET FEEDTUBE ONE (11:00)
[2021-05-24] MEDS: ONDANSETRON 4 MG/2 ML INJ IV PRN ×2 (12:41→17:32)
[2021-05-24] MEDS: HYDROcodone/ACETAMINOPHEN 5-325 MG TAB PO PRN (13:09)
[2021-05-24] MEDS: METOCLOPRAMIDE 10 MG/2 ML INJ IV PRN (20:05)
[2021-05-25] MEDS: MORPHINE 2 MG/1 ML INJ IV PRN ×4 (01:45→20:05)
[2021-05-25 04:36] LABS: Basophils % (Auto) 0.2 % (0.0-1.8); Eosinophils # (Auto) 0.1 K/mm3 (0.0-0.4); Eosinophils % (Auto) 0.9 % (0.0-4.3); Hematocrit 29.3 % (30.3-42.9); Lymphocytes # (Auto) 3.5 K/mm3 (1.2-5.4); Lymphocytes % (Auto) 27.6 % (13.4-35.0); Mean Corpuscular HGB Conc 31 % (30-34); Monocytes # (Auto) 1.4 K/mm3 (0.0-0.8); Platelet Count 368 K/mm3 (140-440); Red Blood Count 4.27 M/mm3 (3.65-5.03); Red Cell Distribution Width 17.7 % (13.2-15.2)
[2021-05-25 04:38] LABS: Mean Corpuscular Volume 69 fl (79-97)
[2021-05-25 04:54] LABS: Alanine Aminotransferase 35 units/L (7-56); Albumin 3.8 g/dL (3.9-5); BUN/Creatinine Ratio 9; Blood Urea Nitrogen 8 mg/dL (7-17); Calcium 8.3 mg/dL (8.4-10.2); Hemolysis Index 35
[2021-05-25] MEDS: POTASSIUM CHLORIDE 10 MEQ 10 MEQ/100 ML BAG IV SCH ×4 (06:15→10:43)
[2021-05-25] MEDS: METOCLOPRAMIDE 10 MG/2 ML INJ IV PRN ×2 (08:13→15:55)
[2021-05-25] MEDS: LOSARTAN 50 MG TAB PO SCH (09:14)
[2021-05-25] MEDS: CLOPIDOGREL 75 MG TAB PO SCH (09:15)
[2021-05-25] MEDS: ASPIRIN EC 325 MG TAB PO SCH (09:15)
[2021-05-25] MEDS: METOPROLOL TARTRATE 50 MG TAB PO SCH ×2 (09:15→22:05)
--- NOTE | 2021-05-25 12:36 | Progress Note ---
Assessment and Plan - Patient Problems (1) ST elevation myocardial infarction (STEMI) Current Visit: No Status: Acute Plan to address problem: Patient presented with chest pain and ST elevation inferolateral wall myocardial infarction. Cardiac catheterization showed severe stenosis of the mid LAD, treated with primary angioplasty and stenting, 3.5 mm drug-eluting stent. Continue guideline directed medical therapy as ordered. Patient is stable for transfer to telemetry. An echocardiogram is pending for left ventricular function and valvular function assessment. Subjective Date of service: 05/25/21 Principal diagnosis: Acute NM Interval history: Patient is comfortable, no acute distress, no further chest pain. The right wrist cath site is well-healed, normal radial pulses. An echocardiogram is pending, ordered for left ventricular function and valvular function assessment. Objective Vital Signs Temp Pulse Resp BP Pulse Ox 05/25/21 10:40 74 18 127/83 97 05/25/21 10:30 69 12 127/83 98 05/25/21 10:20 68 10 L 127/83 99 05/25/21 10:10 68 9 L 125/76 100 05/25/21 10:00 71 14 125/76 100 05/25/21 09:50 82 14 125/76 98 05/25/21 09:40 74 14 125/76 99 05/25/21 09:30 89 19 125/76 98 05/25/21 09:20 73 12 125/76 99 05/25/21 09:15 79 132/85 05/25/21 09:14 73 132/85 05/25/21 09:10 79 18 132/85 98 05/25/21 09:00 83 13 140/98 99 05/25/21 08:50 75 13 140/98 99 05/25/21 08:40 71 14 132/88 99 05/25/21 08:30 76 13 142/97 100 05/25/21 08:20 75 13 142/97 100 05/25/21 08:10 75 12 143/91 100 05/25/21 08:00 97.8 F 71 14 136/96 100 05/25/21 07:50 74 13 136/96 98 05/25/21 07:40 73 14 136/88 99 05/25/21 07:30 60 10 L 136/88 100 05/25/21 07:20 72 21 136/88 98 05/25/21 07:10 67 14 128/81 100 03/28/22 07:00 67 10 L 141/95 100 05/25/21 06:50 69 13 128/81 99 05/25/21 06:40 67 11 L 137/90 100 05/25/21 06:30 71 14 137/90 99 05/25/21 06:20 71 12 137/90 100 05/25/21 06:11 65 13 138/95 99 05/25/21 06:01 71 15 138/95 97 05/25/21 05:51 86 17 141/95 98 05/25/21 05:41 68 12 141/95 97 05/25/21 05:31 69 8 L 141/95 99 05/25/21 05:21 87 11 L 141/95 99 05/25/21 05:11 67 10 L 141/95 100 05/25/21 05:01 67 10 L 141/95 99 05/25/21 04:51 74 11 L 140/93 100 05/25/21 04:41 80 15 134/90 100 05/25/21 04:31 63 11 L 138/82 100 05/25/21 04:21 68 11 L 138/82 99 05/25/21 04:19 98.4 F 05/25/21 04:11 66 11 L 138/82 100 05/25/21 04:01 64 10 L 138/82 100 05/25/21 04:00 21 99 05/25/21 03:51 61 9 L 131/89 99 05/25/21 03:41 70 15 124/90 99 05/25/21 03:30 69 11 L 124/90 97 05/25/21 03:21 68 11 L 118/81 95 05/25/21 03:11 65 10 L 138/84 95 05/25/21 03:00 63 12 138/84 95 05/25/21 02:51 70 11 L 122/83 95 05/25/21 02:41 69 10 L 113/81 100 05/25/21 02:31 67 9 L 113/81 100 05/25/21 02:21 69 10 L 132/82 99 05/25/21 02:11 64 12 131/85 100 05/25/21 02:00 76 11 L 131/85 99 05/25/21 01:51 72 11 L 122/81 99 05/25/21 01:41 70 11 L 125/83 100 05/25/21 01:31 68 11 L 125/83 100 05/25/21 01:21 65 11 L 133/89 100 05/25/21 01:11 57 L 20 134/80 100 05/25/21 01:01 66 11 L 134/80 100 05/25/21 00:51 70 10 L 126/83 100 05/25/21 00:41 69 10 L 126/83 100 05/25/21 00:31 65 12 126/83 99 05/25/21 00:21 70 12 138/95 100 05/25/21 00:11 64 12 139/89 99 05/25/21 00:01 65 11 L 139/89 99 05/25/21 00:00 21 99 05/24/21 23:51 78 19 134/86 97 05/24/21 23:41 75 11 L 148/91 99 05/24/21 23:30 74 12 148/91 99 05/24/21 23:21 81 12 138/85 99 05/24/21 23:11 78 11 L 140/86 99 05/24/21 23:01 73 15 140/86 99 05/24/21 22:51 77 15 147/96 100 05/24/21 22:41 85 11 L 144/89 100 05/24/21 22:31 87 12 144/89 100 05/24/21 22:21 85 13 141/83 100 05/24/21 22:11 84 18 133/87 99 05/24/21 22:08 90 133/87 05/24/21 22:00 83 11 L 133/87 100 05/24/21 21:51 95 H 17 128/87 100 05/24/21 21:41 89 13 135/77 100 05/24/21 21:31 94 H 12 135/77 100 05/24/21 21:21 84 13 135/83 100 05/24/21 21:11 104 H 13 142/86 100 05/24/21 21:00 102 H 13 142/86 100 05/24/21 20:51 96 H 12 142/77 99 05/24/21 20:41 104 H 19 129/85 98 05/24/21 20:31 98 H 12 129/85 100 05/24/21 20:21 94 H 13 151/97 97 05/24/21 20:11 65 16 143/93 97 05/24/21 20:01 71 20 143/93 100 05/24/21 20:00 21 99 05/24/21 19:53 99 F 05/24/21 19:51 80 15 135/77 100 05/24/21 19:41 80 15 138/86 100 05/24/21 19:31 81 19 137/82 99 05/24/21 19:21 79 20 137/82 100 05/24/21 19:11 93 H 29 H 140/80 100 05/24/21 19:01 95 H 13 140/80 100 05/24/21 18:51 89 13 144/81 100 05/24/21 18:41 69 12 139/84 100 05/24/21 18:31 74 13 139/84 98 05/24/21 18:21 72 13 138/84 98 05/24/21 18:11 81 30 H 142/83 98 05/24/21 18:01 71 12 142/83 96 05/24/21 17:51 70 18 161/43 97 05/24/21 17:41 71 15 137/95 96 05/24/21 17:30 63 20 137/95 99 05/24/21 17:21 89 18 129/85 97 05/24/21 17:11 75 16 138/85 97 05/24/21 17:01 74 22 138/85 96 05/24/21 16:51 72 12 126/78 98 05/24/21 16:41 66 11 L 127/81 99 05/24/21 16:30 67 11 L 127/81 100 05/24/21 16:21 83 16 122/84 100 05/24/21 16:11 72 11 L 127/81 100 05/24/21 16:01 65 10 L 128/82 100 05/24/21 16:00 21 99 05/24/21 15:51 75 14 133/84 100 05/24/21 15:41 79 11 L 133/84 97 05/24/21 15:30 73 14 133/84 99 05/24/21 15:21 74 12 136/87 98 05/24/21 15:11 79 16 132/84 98 05/24/21 15:00 86 13 132/84 99 05/24/21 14:51 79 11 L 126/81 99 05/24/21 14:41 65 14 122/87 100 05/24/21 14:30 73 10 L 122/87 99 05/24/21 14:21 78 13 127/86 98 05/24/21 14:11 66 12 138/87 100 05/24/21 14:01 68 11 L 138/87 98 05/24/21 13:51 66 16 134/87 97 05/24/21 13:41 74 13 139/98 99 05/24/21 13:31 67 18 139/98 97 05/24/21 13:21 74 12 127/86 100 05/24/21 13:11 93 H 14 127/86 96 05/24/21 13:01 75 11 L 127/86 100 05/24/21 12:51 64 14 134/90 98 05/24/21 12:41 82 12 155/101 96 - Physical Examination General: No Apparent Distress HEENT: Positive: PERRL Neck: Positive: neck supple Cardiac: Positive: Reg Rate and Rhythm Lungs: Positive: Decreased Breath Sounds Neuro: Positive: Grossly Intact Abdomen: Positive: Soft Skin: Positive: Clear Extremities: Absent: edema - Labs and Meds Cardiac Enzymes 05/25/21 Range/Units 03:44 AST 150 H (5-40) units/L CBC 05/25/21 Range/Units 03:44 WBC 12.6 H (4.5-11.0) K/mm3 RBC 4.27 (3.65-5.03) M/mm3 Hgb 9.0 L (10.1-14.3) gm/dl Hct 29.3 L (30.3-42.9) % Plt Count 368 (140-440) K/mm3 Lymph # (Auto) 3.5 (1.2-5.4) K/mm3 [place] # (Auto) 1.4 H (0.0-0.8) K/mm3 Eos # (Auto) 0.1 (0.0-0.4) K/mm3 Baso # (Auto) 0.0 (0.0-0.1) K/mm3 Comprehensive Metabolic Panel 05/25/21 Range/Units 03:44 Sodium 136 L (137-145) mmol/L Potassium 3.3 L (3.6-5.0) mmol/L Chloride 102.4 (98-107) mmol/L Carbon Dioxide 20 L (22-30) mmol/L BUN 8 (7-17) mg/dL Creatinine 0.9 (0.6-1.2) mg/dL Glucose 101 H (65-100) mg/dL Calcium 8.3 L (8.4-10.2) mg/dL AST 150 H (5-40) units/L ALT 35 (7-56) units/L Alkaline Phosphatase 88 (35-129) units/L Total Protein 7.0 (6.3-8.2) g/dL Albumin 3.8 L (3.9-5) g/dL
[2021-05-25] MEDS ORDERED: ALPRAZolam 0.5 MG TAB PO PRN (12:42)
--- NOTE | 2021-05-25 12:47 | Progress Note ---
Assessment and Plan Assessment and plan: This is a 45-year-old female with past medical history of hypertension, nicotine abuse, PE no longer on anticoagulation, hyperlipidemia admitted for STEMI s/p drug-eluting stent to LAD Hospital Course to Date: 05/25: Stable on 2L NC, VSS. Still complaints of shoulder, however control with current pain management. Buspar and PRN xanax was also added for anxiety/Depression. Patient is on ASA and plavox per Cardio. Low K repleted, repeat labs in the am. Patient is stable for transfer to Telemetry. Assessment and Plan #STEMI #Coronary Artery Disease - Acute inferolateral ST segment elevation myocardial infarction Cath findings demonstrate greater than 95% stenosis in the mid LAD. Immediate primary angioplasty with deployment of LAWRENCE to LAD. Subsequent EKG demonstrates resolution of ST elevations on EKG and chest pain per cardiology report On Plavix, aspirin, atorvastatin, Ranexa by cardiology Initiated on as needed morphine and Holdrege for pain control Interventional cardiology following Critical care following #Hypertensive emergency #H/O Essential hypertension -S/p Nitroglycerin gtt -Allergy to lisinopril please avoid -Initiated on losartan, metoprolol by cardiology -Continue blood pressure monitor per protocol -Maintain SBP less than 160 #Hypokalemia - K repleted - Check mag - Monitor and replace electrolytes as needed #Hyperlipidemia - Statin as above #Anxiety/Depression #Nicotine Abuse #History of THC use - Cigarettes 3-4/day - behavioral health counseling administered which included education on benefits of smoking cessation as well as options for quitting - Buspar BID and PRN Xanax for anxiety #GI/DVT prophylaxis - PPI- Pepcid - SCDs to bilateral lower extremities while in bed The high probability of a clinically significant, sudden or life threatening deterioration of the [multiple] system(s) required my full and direct attention, intervention and personal management. The aggregate critical care time was [60] minutes. This time is in addition to time spent performing reported procedures but includes the following: [x] Data Review and interpretation [x] Patient assessment and monitoring of vital signs [x] Documentation [x] Medication orders and management Disposition Plan: ICU Total Time Spent with Patient (Minutes): 60 History Interval history: Patient seen and examined at the bedside. Fully AAO, on 2L NC, VSS. Still complaining of mild shoulder pain that is control with current pain management regimen. [facility]ENT overnight Hospitalist Physical - Constitutional Vitals: Temp Pulse Resp BP Pulse Ox 97.8 F 74 18 127/83 97 05/25/21 08:00 05/25/21 10:40 05/25/21 10:40 05/25/21 10:40 05/25/21 10:40 General appearance: Present: no acute distress, well-nourished, obese - EENT Eyes: Present: PERRL, EOM intact ENT: hearing intact, clear oral mucosa - Neck Neck: Present: normal ROM - Respiratory Respiratory effort: normal Respiratory: bilateral: CTA - Cardiovascular Rhythm: regular Heart Sounds: Present: S1 & S2 - Extremities Extremities: no ischemia, pulses intact, pulses symmetrical Peripheral Pulses: within normal limits - Abdominal General gastrointestinal: soft, non-distended, normal bowel sounds - Integumentary Integumentary: Present: clear, warm, dry - Psychiatric Psychiatric: appropriate mood/affect, cooperative - Neurologic Neurologic: CNII-XII intact, moves all extremities - Allied Health Allied health notes reviewed: nursing HEART Score - HEART Score EKG: Significant ST-depression Age: 45-65 Risk factors: 1-2 risk factors Troponin: Troponin T 1.760 ng/mL (0.00-0.029) H* D 05/25/21 03:44 Results - Labs CBC & Chem 7: 05/25/21 03:44 05/25/21 03:44 Labs: Laboratory Last Values WBC 12.6 K/mm3 (4.5-11.0) H 05/25/21 03:44 RBC 4.27 M/mm3 (3.65-5.03) 05/25/21 03:44 Hgb 9.0 gm/dl (10.1-14.3) L 05/25/21 03:44 Hct 29.3 % (30.3-42.9) L 05/25/21 03:44 MCV 69 fl (79-97) L 05/25/21 03:44 MCH 21 pg (28-32) L 05/25/21 03:44 MCHC 31 % (30-34) 05/25/21 03:44 RDW 17.7 % (13.2-15.2) H 05/25/21 03:44 Plt Count 368 K/mm3 (140-440) 05/25/21 03:44 Lymph % (Auto) 27.6 % (13.4-35.0) 05/25/21 03:44 [place] % (Auto) 11.0 % (0.0-7.3) H 05/25/21 03:44 Eos % (Auto) 0.9 % (0.0-4.3) 05/25/21 03:44 Baso % (Auto) 0.2 % (0.0-1.8) 05/25/21 03:44 Lymph # (Auto) 3.5 K/mm3 (1.2-5.4) 05/25/21 03:44 [place] # (Auto) 1.4 K/mm3 (0.0-0.8) H 05/25/21 03:44 Eos # (Auto) 0.1 K/mm3 (0.0-0.4) 05/25/21 03:44 Baso # (Auto) 0.0 K/mm3 (0.0-0.1) 05/25/21 03:44 Seg Neutrophils % 60.3 % (40.0-70.0) 05/25/21 03:44 Seg Neutrophils # 7.6 K/mm3 (1.8-7.7) 05/25/21 03:44 PT 15.0 Sec. (12.2-14.9) H 05/24/21 07:02 INR 1.06 (0.87-1.13) 05/24/21 07:02 APTT 115.1 Sec. (24.2-36.6) H* 05/24/21 07:02 Sodium 136 mmol/L (137-145) L 05/25/21 03:44 Potassium 3.3 mmol/L (3.6-5.0) L 05/25/21 03:44 Chloride 102.4 mmol/L (98-107) 05/25/21 03:44 Carbon Dioxide 20 mmol/L (22-30) L 05/25/21 03:44 Anion Gap 17 mmol/L 05/25/21 03:44 BUN 8 mg/dL (7-17) 05/25/21 03:44 Creatinine 0.9 mg/dL (0.6-1.2) 05/25/21 03:44 Estimated GFR > 60 ml/min 05/25/21 03:44 BUN/Creatinine Ratio 9 % 05/25/21 03:44 Glucose 101 mg/dL (65-100) H 05/25/21 03:44 POC Glucose 108 mg/dL (70-105) H 05/25/21 05:25 Calcium 8.3 mg/dL (8.4-10.2) L 05/25/21 03:44 Total Bilirubin 0.30 mg/dL (0.1-1.2) 05/25/21 03:44 AST 150 units/L (5-40) H 05/25/21 03:44 ALT 35 units/L (7-56) 05/25/21 03:44 Alkaline Phosphatase 88 units/L (35-129) 05/25/21 03:44 Total Creatine Kinase 348 units/L (30-135) H 05/24/21 07:02 CK-MB (CK-2) 36.4 ng/mL (0.0-4.0) H 05/24/21 07:02 CK-MB (CK-2) Rel Index 10.4 (0-4) H 05/24/21 07:02 Troponin T 1.760 ng/mL (0.00-0.029) H* D 05/25/21 03:44 Total Protein 7.0 g/dL (6.3-8.2) 05/25/21 03:44 Albumin 3.8 g/dL (3.9-5) L 05/25/21 03:44 Albumin/Globulin Ratio 1.2 % 05/25/21 03:44 Triglycerides 106 mg/dL (2-149) 05/24/21 07:02 Cholesterol 192 mg/dL (50-199) 05/24/21 07:02 LDL Cholesterol Direct 124 mg/dL (50-130) 05/24/21 07:02 HDL Cholesterol 53 mg/dL (40-59) 05/24/21 07:02 Cholesterol/HDL Ratio 3.62 % 05/24/21 07:02 HCG, Qual Negative (Negative) 05/24/21 07:02 Blood Type B POSITIVE 05/24/21 07:02 Antibody Screen Negative 05/24/21 07:02 Active Medications - Current Medications Current Medications: Generic Name Dose Route Start Last Admin Trade Name Freq PRN Reason Stop Dose Admin Acetaminophen 650 mg 05/24/21 08:02 Acetaminophen 325 Mg Tab PO Q6H PRN Pain MILD(1-3)/Fever >100.5/BOYD Hydrocodone Bitart/Acetaminophen 1 each 05/24/21 08:42 05/24/21 13:09 Hydrocodone/Acetaminophen 5-325 Mg Tab PO 1 each Q6H PRN Administration Pain, Moderate (4-6) Alprazolam 0.5 mg 05/25/21 12:42 Alprazolam 0.5 Mg Tab PO Q8H PRN Anxiety Aspirin 325 mg 05/24/21 10:00 05/25/21 09:15 Aspirin Ec 325 Mg Tab PO 325 mg QDAY LEN Administration Atorvastatin Calcium 40 mg 05/24/21 22:00 05/24/21 22:08 Atorvastatin 40 Mg Tab PO 40 mg QHS LEN Administration Buspirone HCl 7.5 mg 05/25/21 22:00 Buspirone 5 Mg Tab PO BID LEN Clopidogrel Bisulfate 75 mg 05/25/21 10:00 05/25/21 09:15 Clopidogrel 75 Mg Tab PO 75 mg QDAY LEN Administration Nitroglycerin/Dextrose 50 mg in 250 mls @ 3 mls/hr 05/24/21 07:00 05/24/21 19:00 Tridil Drip 50mg/250ml IV 0 mcg/min TITR LEN 0 mls/hr Titration Protocol 10 MCG/MIN Losartan Potassium 50 mg 05/24/21 10:00 05/25/21 09:14 Losartan 50 Mg Tab PO 50 mg QDAY LEN Administration Metoclopramide HCl 10 mg 05/24/21 19:55 05/25/21 08:13 Metoclopramide 10 Mg/2 Ml Inj IV 10 mg Q6H PRN Administration Nausea And Vomiting Metoprolol Tartrate 50 mg 05/24/21 10:00 05/25/21 09:15 Metoprolol Tartrate 50 Mg Tab PO 50 mg BID LEN Administration Morphine Sulfate 2 mg 05/24/21 08:02 05/25/21 08:13 Morphine 2 Mg/1 Ml Inj IV 2 mg Q4H PRN Administration Pain, Moderate (4-6) Ondansetron HCl 4 mg 05/24/21 08:02 05/24/21 17:32 Ondansetron 4 Mg/2 Ml Inj IV 4 mg Q8H PRN Administration Nausea And Vomiting Sodium Chloride 10 ml 05/24/21 10:00 05/25/21 09:16 Sodium Chloride 0.9% 10 Ml Flush Syringe IV 10 ml BID LEN Administration Sodium Chloride 10 ml 05/24/21 08:02 Sodium Chloride 0.9% 10 Ml Flush Syringe IV PRN PRN LINE FLUSH
[2021-05-25] MEDS: busPIRone 5 MG TAB PO SCH (22:06)
[2021-05-26 06:06] LABS: Hematocrit 28.6 % (30.3-42.9); Hemoglobin 8.9 gm/dl (10.1-14.3); Mean Corpuscular HGB Conc 31 % (30-34); Platelet Count 329 K/mm3 (140-440); Red Blood Count 4.19 M/mm3 (3.65-5.03); Red Cell Distribution Width 17.5 % (13.2-15.2)
[2021-05-26 06:07] LABS: Mean Corpuscular Volume 68 fl (79-97)
[2021-05-26 06:23] LABS: BUN/Creatinine Ratio 7; Blood Urea Nitrogen 8 mg/dL (7-17); Calcium 8.6 mg/dL (8.4-10.2); Hemolysis Index 2
--- NOTE | 2021-05-26 08:59 | Electrocardiograph Report ---
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
--- NOTE | 2021-05-26 09:01 | Electrocardiograph Report ---
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
--- NOTE | 2021-05-26 12:04 | Progress Note ---
Assessment and Plan Assessment and plan: This is a 45-year-old female with past medical history of hypertension, nicotine abuse, PE no longer on anticoagulation, hyperlipidemia admitted for STEMI s/p drug-eluting stent to LAD Hospital Course to Date: 05/25: Stable on 2L NC, VSS. Still complaints of shoulder, however control with current pain management. Buspar and PRN xanax was also added for anxiety/Depression. Patient is on ASA and plavox per Cardio. Low K repleted, repeat labs in the am. Patient is stable for transfer to Telemetry. Acute coronary syndrome/STEMI Coronary artery disease Accelerated hypertension Hypokalemia Hyperlipidemia Anxiety/depression 05/26/2021. Cath findings demonstrated greater than 95% stenosis in the mid LAD. Immediate primary angioplasty with deployment of LAWRENCE to LAD. Echocardiogram revealed left ventricular systolic function normal with EF of 55-60%. Patient with mild to moderate concentric left ventricular hypertrophy History Interval history: No new issues overnight Hospitalist Physical - Constitutional Vitals: Temp Pulse Resp BP Pulse Ox 98.7 F 72 14 121/82 99 05/26/21 07:09 05/26/21 11:26 05/26/21 07:09 05/26/21 11:26 05/26/21 11:26 General appearance: Present: no acute distress, well-nourished, obese - EENT Eyes: Present: PERRL, EOM intact ENT: hearing intact, clear oral mucosa, dentition normal - Neck Neck: Present: supple, normal ROM - Respiratory Respiratory effort: normal Respiratory: bilateral: CTA - Cardiovascular Rhythm: regular Heart Sounds: Present: S1 & S2. Absent: gallop, rub - Extremities Extremities: no ischemia, No edema, Full ROM - Abdominal General gastrointestinal: soft, non-tender, non-distended, normal bowel sounds - Integumentary Integumentary: Present: clear, warm, dry - Neurologic Neurologic: CNII-XII intact, moves all extremities HEART Score - HEART Score EKG: Significant ST-depression Age: 45-65 Risk factors: 1-2 risk factors Troponin: Troponin T 1.760 ng/mL (0.00-0.029) H* D 05/25/21 03:44 Troponin: 1-3x normal limit Results - Labs CBC & Chem 7: 05/26/21 05:18 05/26/21 05:18 Labs: Laboratory Last Values WBC 9.7 K/mm3 (4.5-11.0) 05/26/21 05:18 RBC 4.19 M/mm3 (3.65-5.03) 05/26/21 05:18 Hgb 8.9 gm/dl (10.1-14.3) L 05/26/21 05:18 Hct 28.6 % (30.3-42.9) L 05/26/21 05:18 MCV 68 fl (79-97) L 05/26/21 05:18 MCH 21 pg (28-32) L 05/26/21 05:18 MCHC 31 % (30-34) 05/26/21 05:18 RDW 17.5 % (13.2-15.2) H 05/26/21 05:18 Plt Count 329 K/mm3 (140-440) 05/26/21 05:18 Lymph % (Auto) 27.6 % (13.4-35.0) 05/25/21 03:44 [place] % (Auto) 11.0 % (0.0-7.3) H 05/25/21 03:44 Eos % (Auto) 0.9 % (0.0-4.3) 05/25/21 03:44 Baso % (Auto) 0.2 % (0.0-1.8) 05/25/21 03:44 Lymph # (Auto) 3.5 K/mm3 (1.2-5.4) 05/25/21 03:44 [place] # (Auto) 1.4 K/mm3 (0.0-0.8) H 05/25/21 03:44 Eos # (Auto) 0.1 K/mm3 (0.0-0.4) 05/25/21 03:44 Baso # (Auto) 0.0 K/mm3 (0.0-0.1) 05/25/21 03:44 Seg Neutrophils % 60.3 % (40.0-70.0) 05/25/21 03:44 Seg Neutrophils # 7.6 K/mm3 (1.8-7.7) 05/25/21 03:44 PT 15.0 Sec. (12.2-14.9) H 05/24/21 07:02 INR 1.06 (0.87-1.13) 05/24/21 07:02 APTT 115.1 Sec. (24.2-36.6) H* 05/24/21 07:02 Sodium 139 mmol/L (137-145) 05/26/21 05:18 Potassium 3.4 mmol/L (3.6-5.0) L 05/26/21 05:18 Chloride 102.2 mmol/L (98-107) 05/26/21 05:18 Carbon Dioxide 24 mmol/L (22-30) 05/26/21 05:18 Anion Gap 16 mmol/L 05/26/21 05:18 BUN 8 mg/dL (7-17) 05/26/21 05:18 Creatinine 1.1 mg/dL (0.6-1.2) 05/26/21 05:18 Estimated GFR > 60 ml/min 05/26/21 05:18 BUN/Creatinine Ratio 7 % 05/26/21 05:18 Glucose 91 mg/dL (65-100) 05/26/21 05:18 POC Glucose 99 mg/dL (70-105) 05/25/21 17:44 Calcium 8.6 mg/dL (8.4-10.2) 05/26/21 05:18 Phosphorus 3.00 mg/dL (2.5-4.5) 05/26/21 05:18 Magnesium 2.00 mg/dL (1.7-2.3) 05/26/21 05:18 Total Bilirubin 0.30 mg/dL (0.1-1.2) 05/25/21 03:44 AST 150 units/L (5-40) H 05/25/21 03:44 ALT 35 units/L (7-56) 05/25/21 03:44 Alkaline Phosphatase 88 units/L (35-129) 05/25/21 03:44 Total Creatine Kinase 348 units/L (30-135) H 05/24/21 07:02 CK-MB (CK-2) 36.4 ng/mL (0.0-4.0) H 05/24/21 07:02 CK-MB (CK-2) Rel Index 10.4 (0-4) H 05/24/21 07:02 Troponin T 1.760 ng/mL (0.00-0.029) H* D 05/25/21 03:44 Total Protein 7.0 g/dL (6.3-8.2) 05/25/21 03:44 Albumin 3.8 g/dL (3.9-5) L 05/25/21 03:44 Albumin/Globulin Ratio 1.2 % 05/25/21 03:44 Triglycerides 106 mg/dL (2-149) 05/24/21 07:02 Cholesterol 192 mg/dL (50-199) 05/24/21 07:02 LDL Cholesterol Direct 124 mg/dL (50-130) 05/24/21 07:02 HDL Cholesterol 53 mg/dL (40-59) 05/24/21 07:02 Cholesterol/HDL Ratio 3.62 % 05/24/21 07:02 HCG, Qual Negative (Negative) 05/24/21 07:02 Blood Type B POSITIVE 05/24/21 07:02 Antibody Screen Negative 05/24/21 07:02 Active Medications - Current Medications Current Medications: Generic Name Dose Route Start Last Admin Trade Name Freq PRN Reason Stop Dose Admin Acetaminophen 650 mg 05/24/21 08:02 Acetaminophen 325 Mg Tab PO Q6H PRN Pain MILD(1-3)/Fever >100.5/BOYD Hydrocodone Bitart/Acetaminophen 1 each 05/24/21 08:42 05/24/21 13:09 Hydrocodone/Acetaminophen 5-325 Mg Tab PO 1 each Q6H PRN Administration Pain, Moderate (4-6) Alprazolam 0.5 mg 05/25/21 12:42 Alprazolam 0.5 Mg Tab PO Q8H PRN Anxiety Aspirin 325 mg 05/24/21 10:00 05/25/21 09:15 Aspirin Ec 325 Mg Tab PO 325 mg QDAY LEN Administration Atorvastatin Calcium 40 mg 05/24/21 22:00 05/25/21 22:05 Atorvastatin 40 Mg Tab PO 40 mg QHS LEN Administration Buspirone HCl 7.5 mg 05/25/21 22:00 05/25/21 22:06 Buspirone 5 Mg Tab PO 7.5 mg BID LEN Administration Clopidogrel Bisulfate 75 mg 05/25/21 10:00 05/25/21 09:15 Clopidogrel 75 Mg Tab PO 75 mg QDAY LEN Administration Famotidine 20 mg 05/26/21 10:00 Famotidine 20 Mg Tab PO QDAY LEN Losartan Potassium 50 mg 05/24/21 10:00 05/25/21 09:14 Losartan 50 Mg Tab PO 50 mg QDAY LEN Administration Metoclopramide HCl 10 mg 05/24/21 19:55 05/25/21 15:55 Metoclopramide 10 Mg/2 Ml Inj IV 10 mg Q6H PRN Administration Nausea And Vomiting Metoprolol Tartrate 50 mg 05/24/21 10:00 05/25/21 22:05 Metoprolol Tartrate 50 Mg Tab PO 50 mg BID LEN Administration Morphine Sulfate 2 mg 05/24/21 08:02 05/25/21 20:05 Morphine 2 Mg/1 Ml Inj IV 2 mg Q4H PRN Administration Pain, Moderate (4-6) Ondansetron HCl 4 mg 05/24/21 08:02 05/24/21 17:32 Ondansetron 4 Mg/2 Ml Inj IV 4 mg Q8H PRN Administration Nausea And Vomiting Sodium Chloride 10 ml 05/24/21 10:00 05/25/21 22:06 Sodium Chloride 0.9% 10 Ml Flush Syringe IV 10 ml BID LEN Administration Sodium Chloride 10 ml 05/24/21 08:02 Sodium Chloride 0.9% 10 Ml Flush Syringe IV PRN PRN LINE FLUSH
--- NOTE | 2021-05-26 14:52 | Progress Note ---
Assessment and Plan - Patient Problems (1) ST elevation myocardial infarction (STEMI) Current Visit: No Status: Acute Plan to address problem: Patient presented with chest pain and ST elevation inferolateral wall myocardial infarction. Cardiac catheterization showed severe stenosis of the mid LAD, treated with primary angioplasty and stenting, 3.5 mm drug-eluting stent. Continue guideline directed medical therapy as ordered. Patient is stable for cardiac discharge today. Continue guideline directed medical therapy as outlined and outpatient cardiac follow-up visit in 7 to 10 days. She has also been strongly advised to stop smoking. Subjective Date of service: 05/26/21 Principal diagnosis: Acute CO Interval history: Patient looks and feels well, no further chest pain, no new cardiac events reported. Objective Vital Signs Temp Pulse Resp BP Pulse Ox 05/26/21 11:26 72 121/82 99 05/26/21 09:39 100 05/26/21 07:09 98.7 F 75 14 113/78 98 05/26/21 04:00 99 05/26/21 03:15 99.1 F 76 16 100/64 98 05/26/21 00:00 99 05/25/21 23:02 98.8 F 66 14 113/76 97 05/25/21 22:27 98 05/25/21 20:25 97 05/25/21 20:20 71 13 122/73 99 05/25/21 20:10 80 17 133/83 95 05/25/21 20:00 98.8 F 74 15 136/97 97 05/25/21 19:50 82 14 136/97 96 05/25/21 19:40 110 H 18 127/82 05/25/21 19:30 78 12 118/70 99 05/25/21 19:20 92 H 16 118/70 97 05/25/21 19:10 82 13 118/70 98 05/25/21 19:00 81 13 126/77 100 05/25/21 18:50 83 13 126/77 98 05/25/21 18:40 81 12 134/78 96 05/25/21 18:30 87 17 117/74 99 05/25/21 18:20 79 18 117/74 99 05/25/21 18:10 86 16 133/85 96 05/25/21 18:00 81 14 128/83 96 05/25/21 17:50 89 17 128/83 99 05/25/21 17:40 70 14 128/85 100 05/25/21 17:30 76 15 122/76 100 05/25/21 17:20 73 14 122/76 99 05/25/21 17:10 76 14 128/77 100 05/25/21 17:00 76 20 137/98 100 05/25/21 16:50 83 15 137/98 100 05/25/21 16:40 81 16 121/82 100 05/25/21 16:30 76 12 126/83 99 05/25/21 16:20 78 12 126/83 100 05/25/21 16:10 81 15 143/93 99 05/25/21 16:00 99.3 F 85 15 137/83 99 05/25/21 15:50 76 15 137/83 96 05/25/21 15:40 75 16 127/87 98 05/25/21 15:30 74 16 117/82 98 05/25/21 15:20 76 16 117/82 99 05/25/21 15:10 73 12 123/86 100 05/25/21 15:00 68 12 122/82 99 - Physical Examination General: No Apparent Distress HEENT: Positive: PERRL Neck: Positive: neck supple Cardiac: Positive: Reg Rate and Rhythm Lungs: Positive: Decreased Breath Sounds Neuro: Positive: Grossly Intact Abdomen: Positive: Soft Skin: Positive: Clear Extremities: Absent: edema - Labs and Meds CBC 05/26/21 Range/Units 05:18 WBC 9.7 (4.5-11.0) K/mm3 RBC 4.19 (3.65-5.03) M/mm3 Hgb 8.9 L (10.1-14.3) gm/dl Hct 28.6 L (30.3-42.9) % Plt Count 329 (140-440) K/mm3 Comprehensive Metabolic Panel 05/26/21 Range/Units 05:18 Sodium 139 (137-145) mmol/L Potassium 3.4 L (3.6-5.0) mmol/L Chloride 102.2 (98-107) mmol/L Carbon Dioxide 24 (22-30) mmol/L BUN 8 (7-17) mg/dL Creatinine 1.1 (0.6-1.2) mg/dL Glucose 91 (65-100) mg/dL Calcium 8.6 (8.4-10.2) mg/dL
[2021-05-26] MEDS: HYDROcodone/ACETAMINOPHEN 5-325 MG TAB PO PRN (14:58)
[2021-05-26] MEDS: busPIRone 5 MG TAB PO SCH ×2 (18:49→22:05)
[2021-05-26] MEDS: METOPROLOL TARTRATE 50 MG TAB PO SCH ×2 (18:55→22:05)
[2021-05-26] MEDS: FAMOTIDINE 20 MG TAB PO SCH (18:56)
[2021-05-26] MEDS: LOSARTAN 50 MG TAB PO SCH (18:57)
[2021-05-26] MEDS: CLOPIDOGREL 75 MG TAB PO SCH (18:57)
[2021-05-26] MEDS: ASPIRIN EC 325 MG TAB PO SCH (18:58)
[2021-05-26] MEDS: MORPHINE 2 MG/1 ML INJ IV PRN (22:11)
[2021-05-27 09:10] VITALS: BP 126/87
[2021-05-27] MEDS: FAMOTIDINE 20 MG TAB PO SCH (10:25)
[2021-05-27] MEDS: LOSARTAN 50 MG TAB PO SCH (10:25)
[2021-05-27] MEDS: ASPIRIN EC 325 MG TAB PO SCH (10:25)
[2021-05-27] MEDS: METOPROLOL TARTRATE 50 MG TAB PO SCH (10:27)
[2021-05-27] MEDS: CLOPIDOGREL 75 MG TAB PO SCH (10:27)
[2021-05-27] MEDS: busPIRone 5 MG TAB PO SCH (10:36)
--- NOTE | 2021-05-27 13:26 | Progress Note ---
Assessment and Plan - Patient Problems (1) ST elevation myocardial infarction (STEMI) Current Visit: No Status: Acute Plan to address problem: Patient presented with chest pain and ST elevation inferolateral wall myocardial infarction. Cardiac catheterization showed severe stenosis of the mid LAD, treated with primary angioplasty and stenting, 3.5 mm drug-eluting stent. Continue guideline directed medical therapy as ordered. Patient is stable for cardiac discharge. Continue guideline directed medical therapy as outlined and outpatient cardiac follow-up visit in 7 to 10 days. She has also been strongly advised to stop smoking. Subjective Date of service: 05/27/21 Principal diagnosis: Acute NE Interval history: Patient looks and feels much better, no chest pain, no shortness of breath, looks and feels well. Objective Vital Signs Temp Pulse Resp BP Pulse Ox 05/27/21 12:00 96 05/27/21 10:27 66 126/87 05/27/21 10:25 66 126/87 05/27/21 08:55 100 05/27/21 08:28 98.0 F 66 18 126/87 96 05/27/21 04:00 97 05/27/21 03:52 98.6 F 66 12 105/72 98 05/27/21 02:30 73 05/27/21 00:00 98 05/26/21 23:21 98.8 F 83 12 130/74 95 05/26/21 22:30 90 05/26/21 20:32 100 05/26/21 20:00 92 H 100 05/26/21 19:12 98.4 F 72 18 139/81 95 05/26/21 18:57 70 05/26/21 18:55 70 05/26/21 16:48 98.7 F 75 18 147/93 99 05/26/21 16:00 99 - Physical Examination General: No Apparent Distress HEENT: Positive: PERRL Neck: Positive: neck supple Cardiac: Positive: Reg Rate and Rhythm Lungs: Positive: clear to auscultation Neuro: Positive: Grossly Intact Abdomen: Positive: Soft Skin: Positive: Clear Extremities: Absent: edema
--- NOTE | 2021-05-27 13:56 | Discharge Summary ---
Providers - Providers Date of Admission: 05/24/21 08:03 Date of discharge: 05/27/21 Attending physician: DERRICK TALBERT 05/24/21 Consult to Cardiac Rehabilitation [CONS] Routine Reason For Exam: post pci 05/24/21 07:00 Consult to Physician [CONS] Stat Comment: Consulting Provider: IAIN CHOWDHURY Physician Instructions: Reason For Exam: stemi Primary care physician: NEDA ARRIOLA Hospitalization Reason for admission: STEMI Condition: Stable Hospital course: This is a 45-year-old female with past medical history of hypertension, nicotine abuse, PE no longer on anticoagulation, hyperlipidemia admitted for STEMI s/p drug-eluting stent to LAD. The patient was admitted with diagnosis below: Acute coronary syndrome/STEMI Coronary artery disease Accelerated hypertension Hypokalemia Hyperlipidemia Anxiety/depression Hospital Course to Date: 05/25: Stable on 2L NC, VSS. Still complaints of shoulder, however control with current pain management. Buspar and PRN xanax was also added for anxiety/Depression. Patient is on ASA and plavix per Cardio. Low K repleted, repeat labs in the am. Patient is stable for transfer to Telemetry. 05/26/2021. Cath findings demonstrated greater than 95% stenosis in the mid LAD. Immediate primary angioplasty with deployment of LA[place] to LAD. Echocardiogram revealed left ventricular systolic function normal with EF of 55-60%. Patient with mild to moderate concentric left ventricular hypertrophy 05/27/2021. Cardiology recommends GDMT and feels the patient is stable for discharge home. Patient should follow-up with cardiology as an outpatient in the next 7 to 10 days. Dedicated discharge time 35 minutes Disposition: 30 STILL A PATIENT Final Discharge Diagnosis (Prints w/discharge instructions): Acute coronary syndrome/STEMI. Coronary artery disease. Accelerated hypertension. Hypokalemia. Hyperlipidemia. Anxiety/depression Core Measure Documentation - Palliative Care Palliative Care/ Comfort Measures: Not Applicable - Core Measures Any of the following diagnoses?: none Exam - Constitutional Vitals: Temp Pulse Resp BP Pulse Ox 98.0 F 66 18 126/87 96 05/27/21 08:28 05/27/21 10:27 05/27/21 08:28 05/27/21 10:05/27/21 12:00 General appearance: Present: no acute distress, well-nourished - EENT Eyes: Present: PERRL ENT: hearing intact, clear oral mucosa - Neck Neck: Present: supple, normal ROM - Respiratory Respiratory effort: normal Respiratory: bilateral: CTA - Cardiovascular Heart Sounds: Present: S1 & S2. Absent: rub, click - Extremities Extremities: pulses symmetrical, No edema Peripheral Pulses: within normal limits - Abdominal General gastrointestinal: Present: soft, non-tender, non-distended, normal bowel sounds Female genitourinary: Present: normal - Integumentary Integumentary: Present: clear, warm, dry - Musculoskeletal Musculoskeletal: gait normal, strength equal bilaterally - Psychiatric Psychiatric: appropriate mood/affect, intact judgment & insight - Neurologic Neurologic: CNII-XII intact, moves all extremities Plan Activity: advance as tolerated Weight Bearing Status: Weight Bear as Tolerated Diet: low fat, low cholesterol, low salt Follow up with: NEDA ARRIOLA MD [Primary Care Provider] - 3-5 Days IAIN CHOWDHURY MD [Staff Physician] - 7 Days Prescriptions: Losartan [Cozaar] 50 mg PO QDAY #30 tablet Aspirin EC [Ecotrin] 325 mg PO QDAY #30 tablet AtorvaSTATin [Lipitor] 40 mg PO QHS #30 tablet Metoprolol [Lopressor TAB] 50 mg PO BID #60 tablet Clopidogrel [Plavix] 75 mg PO QDAY #30 tablet
--- NOTE | 2021-05-27 14:06 | Electrocardiograph Report ---
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
== END 2021-05-27 15:00 | disposition home or self-care (01) | DRG 247 ==
LOC: ED 06:41 → CC1 08:03 → 4A 05-25 21:17
PROVIDERS: ADMIT Internal Medicine; ATTEND Hospitalist
PROC: 4A023N7 Measurement of Cardiac Sampling and Pressure, Left Heart, Percutaneous Approach (ICD-10-PCS; principal; 2021-05-24)
PROC: 027034Z Dilation of Coronary Artery, One Artery with Drug-eluting Intraluminal Device, Percutaneous Approach (ICD-10-PCS; 2021-05-24)
PROC: B2111ZZ Fluoroscopy of Multiple Coronary Arteries using Low Osmolar Contrast (ICD-10-PCS; 2021-05-24)
DX: I21.19 ST elevation (STEMI) myocardial infarction involving other coronary artery of inferior wall (principal); I16.1 Hypertensive emergency; I10 Essential (primary) hypertension; I25.10 Atherosclerotic heart disease of native coronary artery without angina pectoris; E87.6 Hypokalemia; E78.5 Hyperlipidemia, unspecified; J45.909 Unspecified asthma, uncomplicated; F41.9 Anxiety disorder, unspecified; F32.9 Major depressive disorder, single episode, unspecified; F17.210 Nicotine dependence, cigarettes, uncomplicated; Z71.6 Tobacco abuse counseling; Z88.0 Allergy status to penicillin; Z88.2 Allergy status to sulfonamides; Z88.8 Allergy status to other drugs, medicaments and biological substances; Z90.710 Acquired absence of both cervix and uterus; Z86.711 Personal history of pulmonary embolism
CPT/HCPCS: 36415; 71045; 80048; 80053; 80061; 82550; 82553; 82962; 83735; 84100; 84484; 84703; 85014; 85018; 85025; 85027; 85610; 85730; 86850; 86900; 86901; 87641; 92941; 93005; 93306; 93454; 94760; 99406; G0378; J1815; J3490; J9280; Q0162; C1769; C1874; C1887; C1894; C8929; C9606; J0171; J1644; J2250; J2270; J2370; J2405; J2765; J3010; J3246; J3480; J7030; J7040; Q9967